=== PATIENT | female | born 1950 | race Caucasian/White ===

== ENCOUNTER → 2016-08-31 | Emergency (ER) | payer MEDICARE, MEDICAID ==
[~2016-08-31] VITALS: Ht 157.5 cm; Wt 88.5 kg
[~2016-08-31] MED LIST: ASPI-892 PO; ASPI81TA19 PO; ATOR20TA66 PO; ATOR80TA2 PO; CELE200C PO; CETI10TA17 PO; CETI10TA57 PO; CLCX100C PO; DESV50TA PO; DNPZ5T PO; DONE10TA5 PO; DONE5TAB30 PO; EZET10TA23 PO; FENO160T PO; FLECTOR PATCH; FLT05NA16 NSEACH; FLUT16SP13 NS; Flexeril; HYDR25TA4 PO; LEVO75TA6 PO; LINA5TAB PO; LISI1TAB10 PO; LISI1TAB78 PO; MEMA10TA PO; MEMA28CA PO; METF500T4 PO; MNTL10T PO; MONT10TA24 PO; MTF500T PO; MULT-1009 PO; MULT-974 PO; MV-M1TAB2 PO; NF-ESOM40C PO; NIAC-4 PO; NIAC400C2 PO; NIAC750T15 PO; OMEG1CAP51 PO; OMEG1CAP74 PO; PIOG15TA2 PO; PIOG15TA22 PO; SERT50TA9 PO; SIMV40TA4 PO; SMV20T PO; TRAM50TA2 PO; TRZ100T PO; VITA-37 PO
[2016-08-31 14:06] VITALS: BP 160/79
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
== END | disposition home or self-care (01) ==
LOC: EDUNIT# 13:50 → ER 13:53
DX: S19.9XXA Unspecified injury of neck, initial encounter (principal); S29.9XXA Unspecified injury of thorax, initial encounter; M47.812 Spondylosis without myelopathy or radiculopathy, cervical region; M48.02 Spinal stenosis, cervical region; E11.9 Type 2 diabetes mellitus without complications; Z79.84 Long term (current) use of oral hypoglycemic drugs; Z79.899 Other long term (current) drug therapy; V44.6XXA Car passenger injured in collision with heavy transport vehicle or bus in traffic accident, initial encounter; Y92.014 Private driveway to single-family (private) house as the place of occurrence of the external cause; Y99.8 Other external cause status
CPT/HCPCS: 72125; 72128; 99283

== ENCOUNTER 2017-09-13 15:23 | Emergency (ER) | payer MEDICAID, MEDICARE, OTHER ==
[~2017-09-13] VITALS: Ht 157.5 cm; Wt 74.4 kg
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
[2017-09-13 16:06] LABS: BILIRUBIN,URINE NEGATIVE (NEGATIVE); COLOR,URINE YELLOW; GLUCOSE, URINE (UA) NEGATIVE (NEGATIVE); KETONES,URINE 1+ (NEGATIVE); LEUKOCYTE ESTERASE ,URINE 2+ (NEGATIVE); NITRITE,URINE NEGATIVE (NEGATIVE); PH,URINE 6 (5-9); PROTEIN,URINE 1+ (NEGATIVE); UROBILINOGEN,URINE NORMAL (NORMAL)
[2017-09-13 16:07] LABS: CLARITY,URINE CLEAR
[2017-09-13 16:31] LABS: BACTERIA,URINE TRACE /HPF
[2017-09-13 16:45] LABS: BASOPHILS % (AUTO) 0 % (0-10); EOSINOPHILS # (AUTO) 0.2 10^3/uL (0.0-0.3); EOSINOPHILS % (AUTO) 2 % (0-10); HEMATOCRIT 45 % (35-52); HEMOGLOBIN 15.2 G/DL (11.5-16.0); LYMPHOCYTES % (AUTO) 26 % (12-44); MEAN CORPUSCULAR HEMOGLOBIN 29 PG (25-34); MEAN CORPUSCULAR HGB CONC 34 G/DL (32-36); MEAN CORPUSCULAR VOLUME 86 FL (80-99); MEAN PLATELET VOLUME 9.7 FL (7.4-10.4); MONOCYTES # (AUTO) 0.5 X 10^3 (0.0-1.0); MONOCYTES % (AUTO) 7 % (0-12); NEUTROPHILS # (AUTO) 4.9 X 10^3 (1.8-7.8); NEUTROPHILS % (AUTO) 65 % (42-75); PLATELET COUNT 271 10^3/uL (130-400); RED CELL DISTRIBUTION WIDTH 14.6 % (10.0-14.5); WHITE BLOOD COUNT 7.6 10^3/uL (4.3-11.0)
[2017-09-13 17:04] LABS: ALANINE AMINOTRANSFERASE 20 U/L (0-55); ALBUMIN 4.3 GM/DL (3.2-4.5); ALKALINE PHOSPHATASE 45 U/L (40-136); AMYLASE 31 U/L (25-125); BILIRUBIN,TOTAL 0.8 MG/DL (0.1-1.0); BUN/CREATININE RATIO 12; CALCIUM 9.8 MG/DL (8.5-10.1); CARBON DIOXIDE 26 MMOL/L (21-32); CHLORIDE 107 MMOL/L (98-107); CREATININE SERUM 0.84 MG/DL (0.60-1.30); GFR ESTIMATED > 60; GLUCOSE 89 MG/DL (70-105); LIPASE 9 U/L (8-78); SODIUM 141 MMOL/L (135-145); TOTAL PROTEIN 6.9 GM/DL (6.4-8.2)
[2017-09-13] MEDS: NS 250 ML (IVPB) BAG IV ONE (17:26)
[2017-09-13] MEDS: IOHEXOL 350 MG/ML 100 ML (OMNIPAQUE 350) VIAL IV ONE (17:26)
[2017-09-13] MEDS: CATHETER FLUSH 10 ML SYR IV PRN (17:26)
[2017-09-13] MEDS: NS IV 1000 ML 1,000 ML IV SCH (17:41)
--- NOTE | 2017-09-13 17:53 | Diagnostic Imaging Report ---
PROCEDURE: CT abdomen and pelvis with contrast. TECHNIQUE: Multiple contiguous axial images were obtained through the abdomen and pelvis after administration of intravenous contrast. DATE: September 03, 2017. COMPARISON: None. INDICATION: 67-year-old female, epigastric pain for one month, diarrhea. FINDINGS: The visualized portions of the lung bases are clear. The heart is not enlarged. There is no identified pericardial effusion. There are atherosclerotic calcifications. There is mild ectasia of the infrarenal abdominal aorta. The liver is diffusely low in attenuation compatible with diffuse fatty infiltration of the liver. The outer liver contours are not grossly nodular. There is no identified liver lesion. The main, right, and left portal veins are patent. The patient is status post cholecystectomy. There is no identified intrahepatic or extrahepatic bile duct dilation. The main pancreatic duct is not abnormally dilated. The pancreatic parenchyma is unremarkable. The spleen is normal in size. The adrenal glands are unremarkable. Unremarkable appearance of the renal parenchyma. The urinary collecting systems are not distended. There is no identified renal or ureteral stone. The urinary bladder is unremarkable in appearance. The intestinal tract is not distended. The appendix is best seen on axial image 62 and adjacent sequential images. There does appear to be mucosal enhancement and mild wall thickening at the level of the distal sigmoid colon. The lumen of the distal sigmoid colon appears somewhat narrow at this location although this potentially could relate to underdistention. There is no free intraperitoneal air. There is no drainable fluid collection. There is a fat-containing umbilical hernia. There is no free pelvic fluid. There is no identified abnormally enlarged lymph node within the abdomen or pelvis which meets CT size criteria for adenopathy. There is mild grade 1 retrolisthesis of L3 on L4. There are multilevel degenerative changes of the spine. There is no identified acute bony abnormality. IMPRESSION: CT ABDOMEN AND PELVIS. 1. Differential diagnostic considerations would include infectious and inflammatory colitis. Ischemic colitis would be considered in the differential diagnosis. Malignancy is also considered. Recommend correlation clinically. Colonoscopy may be helpful for further evaluation as needed. 2. Diffuse fatty infiltration of the liver. Dictated by: Dictated on workstation # [id number]
--- NOTE | 2017-09-13 18:03 | ED Abdominal Pain ---
General Chief Complaint: Abdominal/GI Problems Stated Complaint: ABD PAIN Nursing Triage Note: PT AMBULATED TO RM 5 W/O DIFFICULTIES. PT STATES SHE STARTED HAVING STOMACH PAIN APPROXIMATELY 1 MONTH AGO. PAIN IS NOW RADIATING INTO THE BACK. PT C/O N/V/D. PT STATES SHE IS TAKING PHENERGAN 8 MG AND IT IS NOT HELPING. PT IS ALSO CONCERNED SHE HAS HAD A LARGE WEIGHT LOSS, BUT UNSURE OF AMT. Sepsis Screen: Possible Sepsis Risk History of Present Illness Date Seen by Provider: Sep 13, 2017 Time Seen by Provider: 15:30 Initial Comments 67-year-old female presents for diarrhea, generalized abdominal pain, 20-30 pound weight loss over the last 3 months, alopecia and nausea. She reports seeing Dr. Kang approximately 2 months ago and having labs done, she is on levothyroxine. She reports the diarrhea has only been present for the last 2-3 days. She had a colonoscopy done 2-1/[address] German, polyps were found but no other abnormalities, and was told to have a repeat one in May of this year. She has not had this done yet. She denies any dietary changes. Previous cholecystectomy. Timing/Duration: 2-3 Days Severity/Quality: Mild, Cramping Location: Generalized Abdomen Radiation: No Radiation Associated Symptoms: Denies Symptoms Allergies and Home Medications Allergies Coded Allergies: NKANo Known Allergies (Verified Allergy, Unknown, 07/07/05) Home Medications Atorvastatin Calcium 80 Mg Tablet, 80 MG PO DAILY, (Reported) Celecoxib 200 Mg Capsule, 200 MG PO DAILY, (Reported) Cetirizine Hcl 10 Mg Tablet, 10 MG PO DAILY, (Reported) Ciprofloxacin HCl 500 Mg Tablet, 500 MG PO BID Prescribed by: GREGORIO CHESTER on 09/13/17 1820 Desvenlafaxine Succinate 50 Mg Tab.sr.24h, 50 MG PO DAILY, (Reported) Donepezil Hcl 5 Mg Tablet, 5 MG PO BID, (Reported) Donepezil Hcl Unknown Strength Tablet, Unknown Dose PO HS, (Reported) Ezetimibe 10 Mg Tablet, 10 MG PO HS, (Reported) Fluticasone Propionate 16 Gm Purmela, 16 GM NS PRN, (Reported) Levothyroxine Sodium 75 Mcg Tablet, 75 MCG PO DAILY, (Reported) Linagliptin 5 Mg Tablet, 5 MG PO DAILY, (Reported) Lisinopril/Hydrochlorothiazide 1 Tab Tablet, 1 TAB PO DAILY, (Reported) Memantine Hcl 10 Mg Tablet, 10 MG PO BID, (Reported) Metformin Hcl 500 Mg Tablet, 1 EACH PO BID WITH MEALS, (Reported) Metronidazole 500 Mg Tablet, 500 MG PO BID Prescribed by: GREGORIO CHESTER on 09/13/17 1820 Montelukast Sodium 10 Mg Tablet, 10 MG PO HS, (Reported) Multivitamin 1 Each Tablet, 1 TAB PO DAILY, (Reported) Mv-Mn/Fa/Coq10/Lycopene/Lutein 1 Each Tablet, 1 EACH PO DAILY, (Reported) [place]-3/Dha/Epa/Fish Oil 1,000 Mg Capsule, 2,000 MG PO DAILY, (Reported) Pioglitazone HCl 15 Mg Tablet, 15 MG PO DAILY, (Reported) Sertraline Hcl 50 Mg Tablet, 50 MG PO DAILY, (Reported) Simvastatin 40 Mg Tablet, 40 MG PO HS, (Reported) Tramadol HCl 50 Mg Tablet, 50 MG PO Q ID Prescribed by: ANEL COLE on 08/31/16 1632 Trazodone Hcl 100 Mg Tablet, 100 MG PO HS, (Reported) Vitamin B Complex Unknown Strength Tablet, Unknown Dose PO DAILY, (Reported) [Flexeril] , 10 MG twice a day Prescribed by: ANEL COLE on 08/31/16 1632 Patient Home Medication List Home Medication List Reviewed: Yes Review of Systems Constitutional: no symptoms reported Gastrointestinal: See HPI, Abdominal Pain, Diarrhea, Poor Appetite; Denies Poor Fluid Intake, Denies Vomiting All Other Systems Reviewed Negative Unless Noted: Yes Past Tyiekcc-Hrhoqm-Bydzfz Hx Past Med/Social Hx: Reviewed Nursing Past Med/Soc Hx Patient Social History Recent Foreign Travel: No Contact w/Someone Who Travel: No Recent Infectious Disease Expo: No Recent Hopitalizations: No Immunizations Up To Date Tetanus Booster (TDap): Unknown Date of Pneumonia Vaccine: May 21, 2011 Date of Influenza Vaccine: Mar 23, 2014 Past Medical History Gallbladder, Tonsillectomy High Cholesterol, Hypertension Reproductive Disorders: No Arthritis Hypothyroidsim, Diabetes, Non-Insulin dep Depression Family Medical History Prostate cancer 19 FATHER Respiratory disorder 19 MOTHER ( pnuemonia at age 85) CAD Over 55 Years Old, Hypertension Physical Exam Vital Signs Vital Signs - First Documented 09/13/17 09/13/17 15:26 18:33 Temp 100.7 Pulse 94 Resp 16 B/P (MAP) 144/89 (107) Pulse Ox 97 O2 Delivery Room Air Capillary Refill : Less Than 3 Seconds General Appearance: WD/WN, no apparent distress HEENT: PERRL/EOMI, normal ENT inspection, TMs normal, pharynx normal Neck: non-tender, full range of motion, supple, normal inspection Respiratory: chest non-tender, lungs clear, normal breath sounds Cardiovascular: normal peripheral pulses, regular rate, rhythm Gastrointestinal: normal bowel sounds, soft; No distended, No guarding, No rebound; tenderness (generalized); No mass Extremities: normal range of motion, non-tender, normal inspection Neurologic/Psychiatric: no motor/sensory deficits, alert, normal mood/affect, oriented x 3 Progress/Results/Core Measures Lab Results Laboratory Tests Test 09/13/17 15:36 09/13/17 16:34 Range/Units Urine Color YELLOW Urine Clarity CLEAR Urine pH 6 5-9 Urine Specific [place] 1.015 L 1.016-1.022 Urine Protein 1+ H NEGATIVE Urine Glucose (UA) NEGATIVE NEGATIVE Urine Ketones 1+ H NEGATIVE Urine Nitrite NEGATIVE NEGATIVE Urine Bilirubin NEGATIVE NEGATIVE Urine Urobilinogen NORMAL NORMAL MG/DL Urine Leukocyte Esterase 2+ H NEGATIVE Urine RBC (Auto) NEGATIVE NEGATIVE Urine RBC NONE /HPF Urine WBC 2-5 /HPF Urine Squamous Epithelial Cells 2-5 /HPF Urine Crystals NONE /LPF Urine Bacteria TRACE /HPF Urine Casts NONE /LPF Urine Mucus SMALL H /LPF Urine Culture Indicated NO White Blood Count 7.6 4.3-11.0 10^3/uL Red Blood Count 5.30 4.35-5.85 10^6/uL Hemoglobin 15.2 11.5-16.0 G/DL Hematocrit 45 35-52 % Mean Corpuscular Volume 86 80-99 FL Mean Corpuscular Hemoglobin 29 25-34 PG Mean Corpuscular Hemoglobin Concent 34 32-36 G/DL Red Cell Distribution Width 14.6 H 10.0-14.5 % Platelet Count 271 130-400 10^3/uL Mean Platelet Volume 9.7 7.4-10.4 FL Neutrophils (%) (Auto) 65 42-75 % Lymphocytes (%) (Auto) 26 12-44 % Monocytes (%) (Auto) 7 0-12 % Eosinophils (%) (Auto) 2 0-10 % Basophils (%) (Auto) 0 0-10 % Neutrophils # (Auto) 4.9 1.8-7.8 X 10^3 Lymphocytes # (Auto) 2.0 1.0-4.0 X 10^3 Monocytes # (Auto) 0.5 0.0-1.0 X 10^3 Eosinophils # (Auto) 0.2 0.0-0.3 10^3/uL Basophils # (Auto) 0.0 0.0-0.1 10^3/uL Sodium Level 141 135-145 MMOL/L Potassium Level 4.0 3.6-5.0 MMOL/L Chloride Level 107 98-107 MMOL/L Carbon Dioxide Level 26 21-32 MMOL/L Anion Gap 8 5-14 MMOL/L Blood Urea Nitrogen 10 7-18 MG/DL Creatinine 0.84 0.60-1.30 MG/DL Estimat Glomerular Filtration Rate > 60 BUN/Creatinine Ratio 12 Glucose Level 89 70-105 MG/DL Calcium Level 9.8 8.5-10.1 MG/DL Total Bilirubin 0.8 0.1-1.0 MG/DL Aspartate Amino Transf (AST/SGOT) 18 5-34 U/L Alanine Aminotransferase (ALT/SGPT) 20 0-55 U/L Alkaline Phosphatase 45 40-136 U/L C-Reactive Protein High Sensitivity 0.03 0.00-0.50 MG/DL Total Protein 6.9 6.4-8.2 GM/DL Albumin 4.3 3.2-4.5 GM/DL Amylase Level 31 25-125 U/L Lipase 9 8-78 U/L My Orders Orders - HENRIK,GREGORIO LYFT DRIVER Amylase (09/13/17 16:00) Cbc With Automated Diff (09/13/17 16:00) Comprehensive Metabolic Panel (09/13/17 16:00) Hs C Reactive Protein (09/13/17 16:00) Lipase (09/13/17 16:00) Ua Culture If Indicated (09/13/17 16:00) Ct Abdomen/Pelvis W (09/13/17 17:09) Saline Lock/Iv-Start (09/13/17 17:09) Ns Iv 1000 Ml (Sodium Chloride 0.9%) (09/13/17 17:09) Iohexol Injection (Omnipaque 350 Mg/Ml 1 (09/13/17 17:15) Sodium Chloride Flush (Catheter Flush Sy (09/13/17 17:15) Ns (Ivpb) (Sodium Chloride 0.9%) (09/13/17 17:15) Pharmacy Communication (Pharmacy Communi (09/13/17 17:12) Sucralfate Tablet (Carafate Tablet) (09/13/17 18:15) Medications Given in ED Current Medications Medications Dose Ordered Sig/Amy Route Start Time Stop Time Status Last Admin Dose Admin Iohexol 100 ml ONCE ONCE IV 09/13/17 17:15 09/13/17 17:16 DC 09/13/17 17:26 100 ML Sodium Chloride 10 ml NEEDED PRN IV 09/13/17 17:15 09/13/17 18:47 DC 09/13/17 17:26 10 ML Sodium Chloride 250 ml ONCE ONCE IV 09/13/17 17:15 09/13/17 17:16 DC 09/13/17 17:26 80 ML Sucralfate 1 gm ONCE ONCE PO 09/13/17 18:15 09/13/17 18:16 DC 09/13/17 18:14 1 GM Vital Signs/I&O 09/13/17 09/13/17 15:26 18:33 Temp 100.7 97.3 Pulse 94 88 Resp 16 16 B/P (MAP) 144/89 (107) 155/85 Pulse Ox 97 O2 Delivery Room Air Room Air Blood Pressure Mean: 107 Progress Note : Time: 15:30 Progress Note Initial evaluation completed, recommended labs and reevaluation. [address] normal recommended [address] abdomen with contrast. 1 L normal saline IV 1735 CT results reviewed with the patient and her son, discussed at length that it appears to be more inflammatory in nature or infectious however I would stress for them to get in with Dr. German for follow-up colonoscopy. They agreed with this plan of care. We'll give Carafate 1 g by mouth. Discussed patient's assessment, reviewed CT study and labs with Dr. Whatley. Agreed with treatment plan. Discharge instructions and return precautions reviewed with the patient and her son, all questions answered. Diagonstic Imaging: CT Plain Films/CT/US/NM/MRI: abdomen, pelvis Comments NAME: RUSSELL SAMAYOA Omid MED REC#: [id number] PT STATUS: REG ER : 1950 PHYSICIAN: GREGORIO CHESTERP ADMIT DATE: 09/13/17/ER Draft Date of Exam:09/13/17 CT ABDOMEN/PELVIS W PROCEDURE: CT abdomen and pelvis with contrast. TECHNIQUE: Multiple contiguous axial images were obtained through the abdomen and pelvis after administration of intravenous contrast. DATE: September 03, 2017. COMPARISON: None. INDICATION: 67-year-old female, epigastric pain for one month, diarrhea. FINDINGS: The visualized portions of the lung bases are clear. The heart is not enlarged. There is no identified pericardial effusion. There are atherosclerotic calcifications. There is mild ectasia of the infrarenal abdominal aorta. The liver is diffusely low in attenuation compatible with diffuse fatty infiltration of the liver. The outer liver contours are not grossly nodular. There is no identified liver lesion. The main, right, and left portal veins are patent. The patient is status post cholecystectomy. There is no identified intrahepatic or extrahepatic bile duct dilation. The main pancreatic duct is not abnormally dilated. The pancreatic parenchyma is unremarkable. The spleen is normal in size. The adrenal glands are unremarkable. Unremarkable appearance of the renal parenchyma. The urinary collecting systems are not distended. There is no identified renal or ureteral stone. The urinary bladder is unremarkable in appearance. The intestinal tract is not distended. The appendix is best seen on axial image 62 and adjacent sequential images. There does appear to be mucosal enhancement and mild wall thickening at the level of the distal sigmoid colon. The lumen of the distal sigmoid colon appears somewhat narrow at this location although this potentially could relate to underdistention. There is no free intraperitoneal air. There is no drainable fluid collection. There is a fat-containing umbilical hernia. There is no free pelvic fluid. There is no identified abnormally enlarged lymph node within the abdomen or pelvis which meets CT size criteria for adenopathy. There is mild grade 1 retrolisthesis of L3 on L4. There are multilevel degenerative changes of the spine. There is no identified acute bony abnormality. IMPRESSION: CT ABDOMEN AND PELVIS. 1. Differential diagnostic considerations would include infectious and inflammatory colitis. Ischemic colitis would be considered in the differential diagnosis. Malignancy is also considered. Recommend correlation clinically. Colonoscopy may be helpful for further evaluation as needed. 2. Diffuse fatty infiltration of the liver. Dictated on workstation # [id number] Dict: 09/13/17 1742 Trans: 09/13/17 1753 [facility] [id number] Interpreted by: TAMEKA BARAHONA MD Electronically signed by: Reviewed: Reviewed by Me (with Dr. Whatley) Departure Impression Primary Impression: Gastroenteritis Additional Impressions: Diarrhea Qualified Codes: R19.7 - Diarrhea, unspecified Weight loss Disposition: 01 HOME, SELF-CARE Condition: Improved Departure-Patient Inst. Decision time for Depature: 18:00 Referrals: [facility] [place]) Primary Care Physician Patient Instructions: Acute Abdomen (Belly Pain), Adult (DC), CONTRAST ANTIDIABETIC MEDS, Diarrhea in Adolescents and Adults Add. Discharge Instructions: Clear liquid diet for the next 6 hours then a bland diet as tolerated. Take antibiotics as prescribed. While your Exam and CT Study lean towards inflammatory changes in your colon, it is important that you follow up with Dr. German to consider colonoscopy study. Call Dr. German office tomorrow for follow up in the next 2 weeks. Follow-up with your primary care provider if symptoms are not improving. You may use [id number] antidiarrheal medication as needed. Return to the emergency department for increased abdominal pain, fever greater than 101, new problems or concerns. All discharge instructions reviewed with patient and/or family. Voiced understanding. Scripts Metronidazole (Flagyl) 500 Mg Tablet 500 MG PO BID, #20 TAB 0 Refills Prov: GREGORIO CHESTER 09/13/17 Ciprofloxacin HCl (Cipro) 500 Mg Tablet 500 MG PO BID, #20 TAB 0 Refills Prov: GREGORIO CHESTER 09/13/17 Copy Copies To 1: CARINE KANG MD Copies To 2: UZAIR GERMAN MD, AMY ARNP Sep 13, 2017 18:03
[2017-09-13] MEDS: SUCRALFATE 1 GM (CARAFATE) TAB PO ONE (18:14)
[2017-09-13] MEDS ORDERED: CIPR-225 PO (18:20)
[2017-09-13] MEDS ORDERED: METR500T PO (18:20)
[2017-09-13 18:33] VITALS: BP 155/85
== END 2017-09-13 18:33 | disposition home or self-care (01) ==
LOC: EDUNIT# 15:23 → ER 15:24
DX: K52.9 Noninfective gastroenteritis and colitis, unspecified (principal); R63.4 Abnormal weight loss; E78.00 Pure hypercholesterolemia, unspecified; I10 Essential (primary) hypertension; E03.9 Hypothyroidism, unspecified; E11.9 Type 2 diabetes mellitus without complications; F32.9 Major depressive disorder, single episode, unspecified; Z82.49 Family history of ischemic heart disease and other diseases of the circulatory system; Z80.42 Family history of malignant neoplasm of prostate; Z90.49 Acquired absence of other specified parts of digestive tract; Z79.84 Long term (current) use of oral hypoglycemic drugs; Z79.51 Long term (current) use of inhaled steroids; Z90.89 Acquired absence of other organs
CPT/HCPCS: 36415; 74177; 80053; 81000; 82150; 83690; 85025; 86141; 96360

== ENCOUNTER 2017-09-17 05:40 | Outpatient (CLI) | payer MEDICARE ==
[~2017-09-17] VITALS: Ht 157.5 cm; Wt 74.6 kg
[~2017-09-17 05:40] MED LIST changes: +CIPR-225 PO; +METR500T PO
[2017-09-17] MEDS ORDERED: RANI150T90 PO (13:55)
[2017-09-17] MEDS ORDERED: CHOL2000 PO (13:55)
[2017-09-17] MEDS ORDERED: FLUT9.9S NS (13:55)
[2017-09-17] MEDS ORDERED: ATOR20TA49 PO (13:55)
[2017-09-17] MEDS ORDERED: METF500T5 PO (13:55)
[2017-09-17] MEDS ORDERED: ASCO500C17 PO (13:55)
[2017-09-17] MEDS ORDERED: LEVO75TA6 PO (13:55)
[2017-09-17] MEDS ORDERED: CALC-823 PO (13:55)
[2017-09-17] MEDS ORDERED: MULT-35 PO (13:55)
[2017-09-17] MEDS ORDERED: OMG1KC PO (13:55)
[2017-09-17] MEDS ORDERED: ASPI-999 PO (13:55)
== END 2017-09-17 14:06 ==
LOC: PREOP 05:40
PROVIDERS: ATTEND Surgery
DX: Z01.818 Encounter for other preprocedural examination (principal); R63.4 Abnormal weight loss; Z86.010 Personal history of colon polyps

== ENCOUNTER 2017-09-20 17:00 | Emergency (ER) | payer MEDICARE ==
[~2017-09-20] VITALS: Ht 157.5 cm; Wt 72.6 kg
[~2017-09-20 17:00] MED LIST changes: +ASCO500C17 PO; +ASPI-999 PO; +ATOR20TA49 PO; +CALC-823 PO; +CHOL2000 PO; +FLUT9.9S NS; +METF500T5 PO; +MULT-35 PO; +OMG1KC PO; +RANI150T90 PO
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
[2017-09-20 17:52] LABS: BILIRUBIN,URINE NEGATIVE (NEGATIVE); CLARITY,URINE CLEAR; COLOR,URINE YELLOW; GLUCOSE, URINE (UA) NEGATIVE (NEGATIVE); KETONES,URINE 1+ (NEGATIVE); LEUKOCYTE ESTERASE ,URINE 3+ (NEGATIVE); NITRITE,URINE POSITIVE (NEGATIVE); PH,URINE 6 (5-9); PROTEIN,URINE 2+ (NEGATIVE); UROBILINOGEN,URINE 1 MG/DL (NORMAL)
[2017-09-20] MEDS ORDERED: FAMOTIDINE 20 MG (PEPCID) TABLET PO STA (17:58)
[2017-09-20 18:00] LABS: BACTERIA,URINE FEW /HPF; WBC,URINE 25-50 /HPF
[2017-09-20] MEDS ORDERED: ANTACID SUSP 30 ML UDC (MYLANTA) PO ONE (18:00)
[2017-09-20] MEDS ORDERED: LIDOCAINE 2% VISCOUS 15 ML UDC PO ONE (18:00)
[2017-09-20] MEDS ORDERED: ONDANSETRON 4 MG (ZOFRAN) ORAL DISSOLVE TAB PO ONE (18:00)
[2017-09-20] MEDS ORDERED: KETOROLAC 30 MG/ML VIAL IM ONE (18:00)
--- NOTE | 2017-09-20 18:00 | ED Abdominal Pain ---
General Chief Complaint: Abdominal/GI Problems Stated Complaint: ABD PAIN Nursing Triage Note: TO ROOM C/O EPIGASTRIC PAIN FOR 1 MONTH HAS BEEN SEEN IN ED FOR HAS APPOINTMENT WITH DR GERMAN ON SUNDAY TO DO A SCOPE. Sepsis Screen: No Definite Risk Source of Information: Patient, Other Exam Limitations: No Limitations History of Present Illness Date Seen by Provider: September 20, 2017 Time Seen by Provider: 17:45 Initial Comments The patient presents to the ER by private conveyance with a chief complaint she is having midepigastric abdominal pain for the last month off and on. It has gotten worse over the last 2 weeks. Week ago she went to her doctor and then a couple days later came to the ER because the pain was getting more persistent. She's had a couple of loose stools but for the most part been solid formed stools. She's not having any fevers or chills. She has CT of the abdomen a week ago that demonstrated thickening of her colon jeff consistent with colitis and she was put on Cipro and Flagyl. She says she's been taking the antibiotics but has not felt any better and she still having some nausea with occasional vomiting. She says she is keeping up with her fluid intake but just does not feel well. She thinks she's lost about 10 pounds in the last month or so. She has a planned colonoscopy with Dr. German next week, Sunday about 4 days. She's had polyps found on her colonoscopy before. She does not have anything for nausea. She is not taking anything for the pain such as Tylenol Motrin or heating pads. Allergies and Home Medications Allergies Coded Allergies: No Known Drug Allergies (Unverified , 09/17/17) Home Medications Ascorbic Acid 500 Mg Capsule, 500 MG PO DAILY, (Reported) Aspirin 81 Mg Tab.chew, 81 MG PO DAILY, (Reported) Atorvastatin Calcium 20 Mg Tablet, 20 MG PO DAILY, (Reported) Calcium Carbonate 500 Mg Tablet, 500 MG PO DAILY, (Reported) Cholecalciferol (Vitamin D3) 2,000 Unit Capsule, 2,000 UNIT PO DAILY, (Reported) Fluticasone Propionate 9.9 Ml [place].susp, 1 SPRAY NS BID, (Reported) 1 SPRAY EACH NARE DAILY Levothyroxine Sodium 75 Mcg Tablet, 75 MCG PO DAILY, (Reported) Metformin HCl 500 Mg Tablet, 500 MG PO BID, (Reported) Multivitamin 1 Each Tablet, 1 EACH PO DAILY, (Reported) [place] 3 Polyunsat Fatty Acids 1,000 Mg Cap, 1,000 MG PO DAILY, (Reported) Ranitidine HCl 150 Mg Tablet, 150 MG PO BID, (Reported) Patient Home Medication List Home Medication List Reviewed: Yes Review of Systems Constitutional: No chills, No diaphoresis, No fever; malaise EENTM: No Blurred Vision, No Eye Pain Respiratory: Denies Cough, Denies Shortness of Air Cardiovascular: Denies Chest Pain, Denies Edema, Denies Lightheadedness Gastrointestinal: Denies Constipated; Diarrhea (occ), Nausea, Poor Fluid Intake , Vomiting (occ) Genitourinary: Denies Burning, Denies Discharge, Denies Drainage Musculoskeletal: No back pain, No joint pain Skin: No pruritus, No rash Past [id number]-[id number] Hx Patient Social History Alcohol Use: Denies Use Recreational Drug Use: No Recent Foreign Travel: No Contact w/Someone Who Travel: No Recent Infectious Disease Expo: No Recent Hopitalizations: No Immunizations Up To Date Tetanus Booster (TDap): Unknown Date of Pneumonia Vaccine: Mar 05, 2015 Date of Influenza Vaccine: Mar 05, 2017 Seasonal Allergies Seasonal Allergies: Yes (MILD) Past Medical History Surgeries: Yes Gallbladder, Tonsillectomy Respiratory: No Cardiac: Yes High Cholesterol, Hypertension Neurological: No Reproductive Disorders: No Sexually Transmitted Disease: No HIV/AIDS: No Gastrointestinal: Yes (WT LOSS) Gastroesophageal Reflux, Polyps Musculoskeletal: No Arthritis Endocrine: Yes (DM, THYROID DZ- TAKES METFORMIN AND LEVOTHYROXINE) Hypothyroidsim, Diabetes, Non-Insulin dep Loss of Vision: Bilateral Hearing Impairment: Denies Cancer: No Psychosocial: Yes Anxiety, Depression Integumentary: No Blood Disorders: No Adverse Reaction/Blood Tranf: No (N/A) Family Medical History Prostate cancer 19 FATHER Respiratory disorder 19 MOTHER ( pnuemonia at age 85) CAD Over 55 Years Old, Hypertension Physical Exam Vital Signs Vital Signs - First Documented 09/20/17 17:38 Temp 98.1 Pulse 86 Resp 18 B/P (MAP) 138/84 (102) Pulse Ox 95 O2 Delivery Room Air Capillary Refill : Less Than 3 Seconds General Appearance: WD/WN, no apparent distress HEENT: PERRL/EOMI, TMs normal, pharynx normal (oral mucosa is moist) Neck: non-tender, full range of motion, supple, normal inspection Respiratory: chest non-tender, lungs clear, normal breath sounds, no respiratory distress, no accessory muscle use Cardiovascular: normal peripheral pulses, regular rate, rhythm, no edema Gastrointestinal: normal bowel sounds, non tender, soft Extremities: normal range of motion, non-tender, normal inspection Neurologic/Psychiatric: alert, normal mood/affect, oriented x 3 Skin: normal color, warm/dry Progress/Results/Core Measures Results/Orders Lab Results Laboratory Tests Test 09/20/17 17:45 09/20/17 18:05 Range/Units Urine Color YELLOW Urine Clarity CLEAR Urine pH 6 5-9 Urine Specific [place] 1.015 L 1.016-1.022 Urine Protein 2+ H NEGATIVE Urine Glucose (UA) NEGATIVE NEGATIVE Urine Ketones 1+ H NEGATIVE Urine Nitrite POSITIVE H NEGATIVE Urine Bilirubin NEGATIVE NEGATIVE Urine Urobilinogen 1 NORMAL MG/DL Urine Leukocyte Esterase 3+ H NEGATIVE Urine RBC (Auto) 1+ H NEGATIVE Urine RBC 2-5 H /HPF Urine WBC 25-50 H /HPF Urine Squamous Epithelial Cells 2-5 /HPF Urine Crystals NONE /LPF Urine Bacteria FEW H /HPF Urine Casts NONE /LPF Urine Mucus NEGATIVE /LPF Urine Culture Indicated YES White Blood Count 8.9 4.3-11.0 10^3/uL Red Blood Count 5.61 4.35-5.85 10^6/uL Hemoglobin 16.0 11.5-16.0 G/DL Hematocrit 48 35-52 % Mean Corpuscular Volume 85 80-99 FL Mean Corpuscular Hemoglobin 29 25-34 PG Mean Corpuscular Hemoglobin Concent 34 32-36 G/DL Red Cell Distribution Width 14.3 10.0-14.5 % Platelet Count 269 130-400 10^3/uL Mean Platelet Volume 10.2 7.4-10.4 FL Neutrophils (%) (Auto) 68 42-75 % Lymphocytes (%) (Auto) 23 12-44 % Monocytes (%) (Auto) 6 0-12 % Eosinophils (%) (Auto) 2 0-10 % Basophils (%) (Auto) 1 0-10 % Neutrophils # (Auto) 6.1 1.8-7.8 X 10^3 Lymphocytes # (Auto) 2.0 1.0-4.0 X 10^3 Monocytes # (Auto) 0.6 0.0-1.0 X 10^3 Eosinophils # (Auto) 0.2 0.0-0.3 10^3/uL Basophils # (Auto) 0.1 0.0-0.1 10^3/uL Sodium Level 141 135-145 MMOL/L Potassium Level 3.9 3.6-5.0 MMOL/L Chloride Level 105 98-107 MMOL/L Carbon Dioxide Level 25 21-32 MMOL/L Anion Gap 11 5-14 MMOL/L Blood Urea Nitrogen 11 7-18 MG/DL Creatinine 1.04 0.60-1.30 MG/DL Estimat Glomerular Filtration Rate 53 BUN/Creatinine Ratio 11 Glucose Level 112 H 70-105 MG/DL Calcium Level 10.1 8.5-10.1 MG/DL Magnesium Level 2.0 1.8-2.4 MG/DL Total Bilirubin 0.8 0.1-1.0 MG/DL Aspartate Amino Transf (AST/SGOT) 15 5-34 U/L Alanine Aminotransferase (ALT/SGPT) 17 0-55 U/L Alkaline Phosphatase 51 40-136 U/L C-Reactive Protein High Sensitivity 0.03 0.00-0.50 MG/DL Total Protein 7.4 6.4-8.2 GM/DL Albumin 4.7 H 3.2-4.5 GM/DL My Orders Orders - LYSSA DRUMMOND Cbc With Automated Diff (09/20/17 17:55) Comprehensive Metabolic Panel (09/20/17 17:55) Hs C Reactive Protein (09/20/17 17:55) Magnesium (09/20/17 17:55) Ondansetron Oral Dissolve Tab (Zofran (09/20/17 18:00) Ketorolac Injection (Toradol Injection) (09/20/17 18:00) Lidocaine 2% Viscous 15 Ml (Xylocaine Vi (09/20/17 18:00) Famotidine Tablet (Pepcid Tablet) (09/20/17 17:58) Antacid Suspension (Mylanta Suspension (09/20/17 18:00) Ceftriaxone Injection (Rocephin Injectio (09/20/17 18:15) Ceftriaxone Injection (Rocephin Injectio (09/20/17 18:30) Lidocaine 1% Inj 50 Ml (Xylocaine 1% Inj (09/20/17 18:30) Lidocaine Pf 1% 5 Ml Injection (Xylocain (09/20/17 18:27) Medications Given in ED Current Medications Medications Dose Ordered Sig/Amy Route Start Time Stop Time Status Last Admin Dose Admin Al Hydrox/Mg Hydrox/Simethicone 30 ml ONCE ONCE PO 09/20/17 18:00 09/20/17 18:01 DC 09/20/17 18:36 30 ML Ceftriaxone Sodium 1,000 mg ONCE ONCE IM 09/20/17 18:30 09/20/17 18:31 DC 09/20/17 18:38 1,000 MG Ketorolac Tromethamine 15 mg ONCE ONCE IM 09/20/17 18:00 09/20/17 18:01 DC 09/20/17 18:38 15 MG Lidocaine HCl 5 ml STK-MED ONCE .ROUTE 09/20/17 18:27 09/20/17 18:32 DC 09/20/17 18:39 5 ML Lidocaine HCl 15 ml ONCE ONCE PO 09/20/17 18:00 09/20/17 18:01 DC 09/20/17 18:36 15 ML Ondansetron HCl 4 mg ONCE ONCE PO 09/20/17 18:00 09/20/17 18:01 DC 09/20/17 18:37 4 MG Vital Signs/I&O 09/20/17 17:38 Temp 98.1 Pulse 86 Resp 18 B/P (MAP) 138/84 (102) Pulse Ox 95 O2 Delivery Room Air Blood Pressure Mean: 102 Progress Progress Note #1: Time: 18:03 Progress Note Patient was seen by another provider in this ER about a week ago and had CT findings thickening colon wall possible consistent with infectious versus inflammatory versus malignant. Sounds like her diarrhea was more recent finding. She is not with any definite increase in her CRP her white blood cell count 19 concerning for a malignant process. She was appropriately treated but does not feel that her symptoms or any better. Return if her a GI cocktail see if this doesn't alleviate some of her pain in her midepigastrium as well as some Zofran for her nausea. We'll give her some ketorolac also for her pain and if we can get her symptoms under control and find no further evidence of infectious or inflammatory runaway disease and we can get her to follow up outpatient with her scheduled appointment in 4 days. She appears to have a UTI with nitrite-positive urinalysis had despite the Cipro ofloxacin so we'll give her a gram or Rocephin today and probably had probiotics and Keflex. Progress Note #2: Time: 18:50 Progress Note The patient's midepigastric pain is improved after the GI cocktail. We've encouraged her to continue taking her ranitidine. We'll put her on probiotics 2 capsules twice a day for the next couple weeks. She has 2 more days worth of the Cipro and Flagyl. We'll go ahead and add Keflex tomorrow evening for 4 more days for a total of 5 days including the Rocephin she received today. We'll also give her some Zofran. We've given her strict return precautions. Departure Impression Primary Impression: Gastroenteritis/colitis, infectious Additional Impression: Urinary tract infection Qualified Codes: N30.01 - Acute cystitis with hematuria Disposition: HOME, SELF-CARE Condition: Improved Departure-Patient Inst. Decision time for Depature: 18:52 Referrals: [facility] [place] (PCP) Primary Care Physician CORINNE CORMIER MD (Family) Primary Care Physician Patient Instructions: Acute Cystitis (DC) Add. Discharge Instructions: Continue taking the antibiotics that you've been prescribed, ciprofloxacin and Flagyl to completion. Tonight go to the pharmacy and pickling tank operator the Zofran to be used one tablet on the tongue every 6 hours as needed for nausea or vomiting. You should also pickling tank operator a bottle of probiotics [id number] and take 2 capsules twice a day for the next 2 weeks. Finally you should pickling tank operator the prescription Keflex and start taking one capsule twice a day tomorrow for the next 4 days to cover your bladder infection. Drink lots and lots of fluids especially sports drinks or water. Keep your follow-up appointment with Dr. German. If you're nausea and vomiting is not controlled by the Zofran or you develop fevers or severe pain that is not controlled with Tylenol and/or Motrin or heating pads you should return to the ER for further evaluation. All discharge instructions reviewed with patient and/or family. Voiced understanding. Scripts Lactobacillus Combo No.11 (Probiotic) 1 Each Cap.sprink 2 EACH PO BID for 14 Days, #60 CAP 0 Refills Prov: LYSSA DRUMMOND 09/20/17 Cephalexin (Cephalexin) 500 Mg Tablet 500 MG PO BID for 4 Days, #8 TAB 0 Refills Prov: LYSSA DRUMMOND 09/20/17 Ondansetron (Ondansetron Odt) 4 Mg Tab.rapdis 4 MG PO Q6H PRN for NAUSEA/VOMITING, #8 TAB 0 Refills Prov: LYSSA DRUMMOND 09/20/17 Copy Copies To 1: BACILIO MCCOY DO; UZAIR GERMAN MD, TITUS J September 20, 2017 18:00
[2017-09-20] MEDS ORDERED: cefTRIAXone INJECTION 1,000 MG in NS (IVPB) 100 ML IV ONE (18:15)
[2017-09-20 18:18] LABS: BASOPHILS # (AUTO) 0.1 10^3/uL (0.0-0.1); BASOPHILS % (AUTO) 1 % (0-10); EOSINOPHILS # (AUTO) 0.2 10^3/uL (0.0-0.3); EOSINOPHILS % (AUTO) 2 % (0-10); HEMATOCRIT 48 % (35-52); LYMPHOCYTES % (AUTO) 23 % (12-44); MEAN CORPUSCULAR HEMOGLOBIN 29 PG (25-34); MEAN CORPUSCULAR HGB CONC 34 G/DL (32-36); MEAN CORPUSCULAR VOLUME 85 FL (80-99); MEAN PLATELET VOLUME 10.2 FL (7.4-10.4); MONOCYTES # (AUTO) 0.6 X 10^3 (0.0-1.0); MONOCYTES % (AUTO) 6 % (0-12); NEUTROPHILS # (AUTO) 6.1 X 10^3 (1.8-7.8); NEUTROPHILS % (AUTO) 68 % (42-75); PLATELET COUNT 269 10^3/uL (130-400); RED BLOOD COUNT 5.61 10^6/uL (4.35-5.85); RED CELL DISTRIBUTION WIDTH 14.3 % (10.0-14.5); WHITE BLOOD COUNT 8.9 10^3/uL (4.3-11.0)
[2017-09-20] MEDS ORDERED: LIDOCAINE PF 1% 5 ML (XYLOCAINE) AMP ONE (18:27)
[2017-09-20] MEDS ORDERED: LIDOCAINE 1% INJ 50 ML (XYLOCAINE) VIAL IJ ONE (18:30)
[2017-09-20] MEDS ORDERED: cefTRIAXone 1 GM (ROCEPHIN) VIAL IM ONE (18:30)
[2017-09-20 18:33] LABS: ALBUMIN 4.7 GM/DL (3.2-4.5); BILIRUBIN,TOTAL 0.8 MG/DL (0.1-1.0); CALCIUM 10.1 MG/DL (8.5-10.1); CREATININE SERUM 1.04 MG/DL (0.60-1.30); POTASSIUM 3.9 MMOL/L (3.6-5.0); TOTAL PROTEIN 7.4 GM/DL (6.4-8.2)
[2017-09-20] MEDS ORDERED: LACT1CAP64 PO (18:56)
[2017-09-20] MEDS ORDERED: ONDA4TAB11 PO (18:56)
[2017-09-20] MEDS ORDERED: CEPH500T PO (18:56)
[2017-09-20 19:02] VITALS: BP 137/95
== END 2017-09-20 19:02 | disposition home or self-care (01) ==
LOC: EDUNIT# 17:00 → ER 17:01
DX: A09 Infectious gastroenteritis and colitis, unspecified (principal); N39.0 Urinary tract infection, site not specified; E78.00 Pure hypercholesterolemia, unspecified; I10 Essential (primary) hypertension; K21.9 Gastro-esophageal reflux disease without esophagitis; E11.9 Type 2 diabetes mellitus without complications; E03.9 Hypothyroidism, unspecified; F41.9 Anxiety disorder, unspecified; F32.9 Major depressive disorder, single episode, unspecified; Z80.42 Family history of malignant neoplasm of prostate; Z79.52 Long term (current) use of systemic steroids; Z86.010 Personal history of colon polyps; Z79.84 Long term (current) use of oral hypoglycemic drugs; Z90.89 Acquired absence of other organs
CPT/HCPCS: 36415; 80053; 81000; 83735; 85025; 86141; 87088; 87186; 96372; 99284

== ENCOUNTER 2017-09-24 08:26 | Day surgery (SDC) | payer MEDICARE ==
[~2017-09-24] VITALS: Ht 157.5 cm; Wt 72.8 kg
[~2017-09-24 08:26] MED LIST changes: +CEPH500T PO; +LACT1CAP64 PO; +ONDA4TAB11 PO
[2017-09-24] MEDS ORDERED: NS IV 500 ML 500 ML ONE (08:30)
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
[2017-09-24] MEDS ORDERED: HURRICAINE EXT TUBE (BENZOCAINE) XX PRN ×2 (08:45→09:30)
[2017-09-24 08:50] VITALS: BP 130/79
--- NOTE | 2017-09-24 09:20 | History & Physicial ---
History of Present Illness History of Present Illness Reason for visit/HPI to undergo colonoscopy in view of abnormal diarrhea with weight loss and on the basis of thickening of the sigmoid colon seen on a CT scan Date of Admission 09/24/17 Date Seen by Provider: September 24, 2017 Time Seen by Provider: 09:15 I consulted on this patient on 09/24/17 09:15 Attending Physician Uzair German MD Admitting Physician [place] Consult Allergies and Home Medications Allergies Coded Allergies: No Known Drug Allergies (Unverified , 09/17/17) Home Medications Ascorbic Acid 500 Mg Capsule, 500 MG PO DAILY, (Reported) Aspirin 81 Mg Tab.chew, 81 MG PO DAILY, (Reported) Atorvastatin Calcium 20 Mg Tablet, 20 MG PO DAILY, (Reported) Calcium Carbonate 500 Mg Tablet, 500 MG PO DAILY, (Reported) Cholecalciferol (Vitamin D3) 2,000 Unit Capsule, 2,000 UNIT PO DAILY, (Reported) Fluticasone Propionate 9.9 Ml [place].susp, 1 SPRAY NS BID, (Reported) 1 SPRAY EACH NARE DAILY Lactobacillus Combo No.11 1 Each Cap.sprink, 2 EACH PO BID Prescribed by: LYSSA DRUMMOND on 09/20/171855 Levothyroxine Sodium 75 Mcg Tablet, 75 MCG PO DAILY, (Reported) Metformin HCl 500 Mg Tablet, 500 MG PO BID, (Reported) Multivitamin 1 Each Tablet, 1 EACH PO DAILY, (Reported) [place] 3 Polyunsat Fatty Acids 1,000 Mg Cap, 1,000 MG PO DAILY, (Reported) Ranitidine HCl 150 Mg Tablet, 150 MG PO BID, (Reported) Patient Home Medication List Home Medication List Reviewed: Yes Past Jzmlwgj-Trbivb-Ynwcbc Hx Patient Social History Employed/Student: unemployed Alcohol Use: Denies Use Recreational Drug Use: No Smoking Status: Never a Smoker Recent Foreign Travel: No Contact w/other who traveled: No Recent Hopitalizations: No Recent Infectious Disease Expo: No Immunizations Up To Date Tetanus Booster (TDap): Unknown Date of Pneumonia Vaccine: Mar 05, 2015 Date of Influenza Vaccine: Mar 05, 2017 Seasonal Allergies Seasonal Allergies: Yes (MILD) Surgeries Yes Gallbladder, Tonsillectomy Respiratory No Cardiovascular Yes High Cholesterol, Hypertension Neurological No Reproductive System Hx Reproductive Disorders: No Sexually Transmitted Disease: No HIV/AIDS: No Gastrointestinal Yes (WT LOSS) Gastroesophageal Reflux, Polyps Musculoskeletal No Arthritis Endocrine History of Endocrine Disorders: Yes (DM, THYROID DZ- TAKES METFORMIN AND LEVOTHYROXINE) Endocrine Disorders: Hypothyroidsim, Diabetes, Non-Insulin dep HEENT Loss of Vision: Bilateral Hearing Impairment: Denies Cancer No Psychosocial History of Psychiatric Problem: Yes Behavioral Health Disorders: Anxiety, Depression Integumentary History of Skin or Integumenta: No Blood Transfusions History of Blood Disorders: No Adverse Reaction to a Blood Tr: No (N/A) Family Medical History Significant Family History: CAD Over 55 Years Old, Hypertension Family Hx: Prostate cancer 19 FATHER Respiratory disorder 19 MOTHER ( pnuemonia at age 85) Constitutional: weight loss EENTM: no symptoms reported Respiratory: no symptoms reported Cardiovascular: no symptoms reported Gastrointestinal: diarrhea Genitourinary: no symptoms reported Musculoskeletal: no symptoms reported Skin: no symptoms reported Psychiatric/Neurological: No Symptoms Reported Physical Exam Vital Signs Vital Signs - First Documented 09/24/17 08:50 Temp 99.5 Pulse 69 Resp 16 B/P (MAP) 130/79 (96) Pulse Ox 93 O2 Delivery Room Air Capillary Refill : General Appearance: No Apparent Distress Neck: Normal Inspection Respiratory: Lungs Clear Cardiovascular: Regular Rate, Rhythm Gastrointestinal: Non Tender, Soft Rectal: Deferred Back: Normal Inspection Extremity: Normal Inspection Neurologic/Psychiatric: Alert, Oriented x3 Skin: Warm/Dry Assessment/Plan Assessment and Plan lady with unexplained weight loss and diarrhea. Abnormal CT scan showing thickening of the sigmoid colon, for colonoscopy. Admission Diagnosis Admission Status: Other (Outpt Proc) UZAIR GERMAN MD September 24, 2017 9:20 am
--- NOTE | 2017-09-24 09:21 | Conscious Sedation/ASA ---
Conscious Sedation Pre-Proced Time Reviewed: 09:21 ASA Class: 2 Airway Mallampati Classification: ([place] appropriate class) I. II. III, IV Lungs Heart ASA score ASA 1: a normal healthy patient ASA 2: a patient with a mild systemic disease (mid diabetes, controlled hypertension, obesity ASA 3: a patient with a severe systemic disease that limits activity (angina , COPD, prior Myocardial infarction) ASA 4: a patient with an incapacitating disease that is a constant threat to life (CHF, renal failure) ASA 5: a moribund patient not expected to survive 24 hrs. (ruptured aneurysm) ASA 6: a declared brain patient whose organs are being harvested. For emergent operations, add the letter E after the classification Grade 2 Sedation Plan: Discussed options with patient/fam Note The patient is an appropriate candidate to undergo the planned procedure, sedation, and anesthesia. The patient immediately re-assessed prior to indication. UZAIR GERMAN MD September 24, 2017 9:21 am
[2017-09-24] MEDS ORDERED: NS IV 500 ML 500 ML IV PRN (09:24)
[2017-09-24] MEDS ORDERED: MIDAZOLAM 2 MG/2 ML (VERSED) VIAL IVP PRN (09:30)
[2017-09-24] MEDS ORDERED: fentaNYL INJECTION 100 MCG/2 ML AMP IVP PRN (09:30)
[2017-09-24] MEDS ORDERED: MIDAZOLAM 2 MG/2 ML (VERSED) VIAL ONE ×4 (09:46→09:47)
[2017-09-24] MEDS ORDERED: fentaNYL INJECTION 100 MCG/2 ML AMP ONE ×2 (09:46)
[2017-09-24] MEDS ORDERED: HURRICAINE EXT TUBE (BENZOCAINE) ONE (09:47)
[2017-09-24] MEDS: fentaNYL INJECTION 100 MCG/2 ML AMP IVP PRN ×2 (09:50→09:56)
[2017-09-24] MEDS: MIDAZOLAM 2 MG/2 ML (VERSED) VIAL IVP PRN ×3 (09:54→10:07)
--- NOTE | 2017-09-24 10:26 | Endo Procedure Record ---
Endo Procedure Report Date of Procedure Last Colonoscopy: No (UNSURE) September 24, 2017 Surgeon (s) UZAIR GERMAN MD Post Procedure/Op Diagnosis EGD: Distal gastric erosions Colonoscopy: 1 mm distal rectal polyp. Sigmoid diverticulae Procedure Performed EGD with antral biopsy for H. pylori Colonoscopy to cecum Hot biopsy Polypectomy Description of Procedure Anesthesia Type: Conscious Sedation Specimen(s) collected/removed antral mucosa for H. pylori. Distal rectal polyp Description of the Procedure Indication for the procedures: This lady came in for an upper endoscopy to evaluate weight loss and colonoscopy to investigate new onset of diarrhea. In addition, she reported a personal history of polyps and a recent CT scan showed thickening of the sigmoid colon, requiring further evaluation. Informed consent was obtained after reviewing the procedures in detail. Description of procedures: EGD/antral biopsy: She was placed in left lateral decubitus position and her vital signs were monitored. Conscious sedation was achieved using Versed and fentanyl. The flexible gastroscope was introduced down the esophagus, past the stomach, into the proximal duodenum. Findings: Esophagus: An uncomplicated hiatal hernia. Stomach: Multiple distal gastric erosions. Biopsy for H. pylori was obtained. Duodenum: normal She tolerated the procedure well and was turned around in preparation for colonoscopy. Impression: Weight loss. Incidental gastric erosions. H. pylori status pending. Colonoscopy/polypectomy: Digital rectal examination was unremarkable. The colonoscope was then introduced into the rectum and advanced all the way up to the cecum. It was then withdrawn slowly and the mucosa examined in a systematic fashion. Findings: 1., 1 mm distal rectal polyp, possibly hyperplastic in nature, that was excised with hot biopsy forceps 2. Sigmoid diverticulosis without any active inflammation. No recurrent polyps were found She tolerated the procedures well and was taken back to the nursing area in a stable condition. Impression: New-onset of diarrhea. Uncomplicated sigmoid diverticulosis. Small rectal polyp excised. Recommend surveillance colonoscopy in 5 years. Copy Copies To 1: BACILIO MCCOY XAVIER M MD September 24, 2017 10:26 am
--- NOTE | 2017-09-24 10:27 | Discharge Inst-Simple/Standard ---
Discharge Inst-Standard Discharge Medications New, Converted or Re-Newed RX: Other Patient Instructions/Follow Up Plan of Care/Instructions/FU: Follow-up with her primary. Repeat colonoscopy in 5 years Activity as Tolerated: Yes Discharge Diet: No Restrictions UZAIR GERMAN MD September 24, 2017 10:27 am
[2017-09-24 10:45] VITALS: BP 142/88
[2017-09-24 11:15] VITALS: BP 142/96
[2017-09-24 11:50] VITALS: BP 142/96
== END 2017-09-24 11:50 | disposition home or self-care (01) ==
LOC: ENDO 08:26
PROVIDERS: ATTEND Surgery
DX: K62.1 Rectal polyp (principal); K25.9 Gastric ulcer, unspecified as acute or chronic, without hemorrhage or perforation; K57.30 Diverticulosis of large intestine without perforation or abscess without bleeding; R19.7 Diarrhea, unspecified; E78.00 Pure hypercholesterolemia, unspecified; I10 Essential (primary) hypertension; E03.9 Hypothyroidism, unspecified; E11.9 Type 2 diabetes mellitus without complications; Z79.82 Long term (current) use of aspirin; Z79.899 Other long term (current) drug therapy; Z79.84 Long term (current) use of oral hypoglycemic drugs
CPT/HCPCS: 88305

== ENCOUNTER 2018-02-02 14:35 | Emergency (ER) | payer MEDICARE ==
[~2018-02-02] VITALS: Ht 167.6 cm; Wt 63.5 kg
[~2018-02-02 14:35] MED LIST changes: +METF-397 PO; -METF500T5 PO
--- OUTSIDE RECORDS SUMMARY | 2018-02-02 14:41 | XMS REPORT ---
Author Author CARINE KANG Organization [facility] [place] Address [address] [place] [address] Care Team Providers Care Nibbler Operator Name Role Phone CARINE KANG Unavailable PROBLEMS Type Condition ICD9-CM Code [id number] Code Onset Dates Condition Status SNOMED Code Problem Dyspepsia R10.13 Active 137939773 Problem Prediabetes R73.03 Active 458485028 Problem Arthritis M19.90 Active 6449189 Problem Mixed hyperlipidemia E78.2 Active 749879885 Problem Acquired hypothyroidism E03.9 Active 770092993 ALLERGIES No Known Allergies ENCOUNTERS Encounter Location Date Diagnosis [facility] [place] [address] [address] Nov, Dyspepsia R10.13 ; Mixed hyperlipidemia E78.2 ; Acquired hypothyroidism E03.9 ; Arthritis M19.90 and Prediabetes R73.03 [facility] [address] [address] 14 Oct, 2017 Dyspepsia R10.13 [facility] [place] [address] [address] 04 Oct, 2017 Dyspepsia R10.13 [facility] [place] [address] [address] Aug, Dyspepsia R10.13 [facility] [place] [address] [address] Aug, Dyspepsia R10.13 and Prediabetes R73.03 [facility] [place] [address] [address] 05 Aug, 2017 Type 2 diabetes mellitus without complication, without long- term current use of insulin E11.9 ; Mixed hyperlipidemia E78.2 ; Acquired hypothyroidism E03.9 and Arthritis M19.90 [facility] [address] [id number] [id number] Jan, Dental examination V72.2 [facility] [address] [id number][place] [id number] Nov, Dental examination V72.2 [facility] [address] [id number][place] [id number] Oct, Dental examination V72.2 [facility] [address] [id number] [place] [id number] Oct, Dental examination V72.2 [facility] [place] [address] [facility]] [id number] [place] [address]- [address] 14 Aug, 2014 [facility] [place] [address] [place] [address] [id number] [place] [address] Aug, [facility] [id number] [place] [address] [id number] Jan, [facility] [address] [id number] [place] [address] [id number] 19 Jan, 2012 [facility] [address] [id number][place] [id number] 18 Jan, 2012 [facility] [address] [id number][place] [id number] 16 Dec, 2011 [facility] [place] [address]00565100[place], [place] [address] Aug, [facility] [place] [address] [facility]] [id number] [place] [address] May, [facility] [place] [address] [facility] 3] [id number], [place] [address] Apr, [facility] [place] [address] [facility]] [id number], [place] [address] Apr, [facility] [place] [address] [id number] [address] Mar, [facility] [place] [address] [id number] [address] Mar, [facility] [place] [address]65[address] [address] Feb, [facility] [place] [address]65[address] [address] Feb, [facility] [place] [id number] [place] [address] 894376- 17[address] Feb, [facility] [place] [id number] [place] [address] 906881- 5687 Feb, [facility] [place] [id number] [place] [address] 421197- 17[address] Apr, [facility] [place] [id number] [place] [address] 449190- 1218 Apr, [facility] [place] [id number] [place] [address]- [address] Apr, [facility] [place] [address]65[address] [address] Mar, [facility] [place] [id number] [place] [address]378- [address] 30 Mar, 2010 [facility] [place] [address]65[address] [address] 17 Mar, 2010 [facility] [place] [address]65100[place] [address] Mar, [facility] [place] [address]65[address] [address] Mar, IMMUNIZATIONS No Known Immunizations SOCIAL HISTORY Never Assessed REASON FOR VISIT Diabetes-TAMMY telles, stomach hurts and feeling nausea, wants to know if she can get back on her blood pressure meds PLAN OF CARE Activity Details Follow Up 3 Months Reason: VITAL SIGNS Height 63 in 2017-12-14 Weight 165 lbs 2017-12-14 Temperature 97.3 degrees Fahrenheit 2017-12-14 Heart Rate 88 bpm 2017-12-14 Respiratory Rate 20 2017-12-14 BMI 29.23 kg/m2 2017-12-14 Blood pressure systolic 112 mmHg 2017-12-14 Blood pressure diastolic 84 mmHg 2017-12-14 MEDICATIONS Medication Instructions Dosage Frequency Start Date End Date Duration Status Lipitor 20 mg Orally Once a day 1 tablet 24h Aug, 30 day(s) Active Levothyroxine Sodium 75 mcg Orally Once a day 1 tablet on an empty stomach in the morning 24h Aug, 30 day(s) Active Omeprazole 20 mg Orally Once a day, 30 min before dinner 1 capsule Oct 30 day(s) Active RESULTS No Results PROCEDURES Procedure Date Ordered Result Body Site [facility] December 14, 2017 GLYCATED HEMOGLOBIN TEST December 14, 2017 VENIPUNCT, ROUTINE* December 14, 2017 MICROALBUMIN, SEMIQUANT December 14, 2017 INSTRUCTIONS MEDICATIONS ADMINISTERED No Known Medications MEDICAL (GENERAL) HISTORY Type Description Date Medical History HBP Medical History Thyroid Problems Medical History Diabetes Medical History Arthritis Surgical History Knee Surgery (not replacement) 2013
--- OUTSIDE RECORDS SUMMARY | 2018-02-02 14:41 | XMS REPORT ---
Author Author JEWEL TEE [facility] Address [address] [place] [address] Care Team Providers Care Annual Greenhouse Manager Name Role Phone JEWEL TEE Unavailable PROBLEMS Type Condition ICD9-CM Code [id number]-CU Code Onset Dates Condition Status SNOMED Code Problem Dyspepsia R10.13 Active 058957478 Problem Prediabetes R73.03 Active 599736157 Problem Arthritis M19.90 Active 8450306 Problem Mixed hyperlipidemia E78.2 Active 899264951 Problem Acquired hypothyroidism E03.9 Active 484490564 ALLERGIES No Known Allergies ENCOUNTERS Encounter Location Date Diagnosis [place] [id number] [address] Nov, Dyspepsia R10.13 ; Mixed hyperlipidemia E78.2 ; Acquired hypothyroidism E03.9 ; Arthritis M19.90 and Prediabetes R73.03 [facility] [address] [address] 14 Oct, 2017 Dyspepsia R10.13 [place] [address] [address] 04 Oct, 2017 Dyspepsia R10.13 [facility] [address] [address] Aug, Dyspepsia R10.13 [place] [address] [address] Aug, Dyspepsia R10.13 and Prediabetes R73.03 [place] [address] [address] 05 Aug, 2017 Type 2 diabetes mellitus without complication, without long- term current use of insulin E11.9 ; Mixed hyperlipidemia E78.2 ; Acquired hypothyroidism E03.9 and Arthritis M19.90 [facility] [address] [id number] [phone] Jan, Dental examination V72.2 [facility] [address] [id number][place] [id number] Nov, Dental examination V72.2 [facility] [address] [id number][place] [id number] Oct, Dental examination V72.2 [facility] [id number] [place] [address] [id number] Oct, Dental examination V72.2 [facility] [id number] [place] [address] 14 Aug, 2014 [facility] [id number] [place] [address] Aug, [facility] [id number] [place] [address] [id number] Jan, [facility] [id number] [place] [address] [id number] 19 Jan, 2012 [facility] [id number] [place] [address] [id number] 18 Jan, 2012 [facility] [id number] [place] [address] [id number] 16 Dec, 2011 [facility] [address]00565[place] [address] Aug, [facility] [address] [id number] [place] [address]- 76[address] May, [facility] [id number] [place] [address] 19967- 6398 Apr, [facility] [id number] [place] [address]95- 5556 Apr, [facility] [address]65100[place] [address] Mar, [facility] [address]65[address] [address]- [address] Mar, [facility] [address] [place] [address] 07767- 7453 Feb, [facility] [address]65[place] Feb, [facility] [id number] [place] [address] 807623- 8144 Feb, [facility] [address] [place] [address] 235268- 8145 Feb, [facility] [id number] [place] [address] 262019- 7884 Apr, [facility] [id number] [place] [address] 34074- 6110 Apr, [facility] [id number] [place] [address] 8[address]15- 1388 Apr, [facility] [address]65[address] [address]- 16[address] Mar, [facility] [id number] [place] [address] 20521- 5398 Mar, [facility] [address]65[address] [address]- [address] Mar, [facility] [address] [place] [address] 12607- 5329 Mar, [facility] [address] [address] Mar, IMMUNIZATIONS No Known Immunizations SOCIAL HISTORY Never Assessed REASON FOR VISIT stomach ache Pt c/o stomach pain which is worse with food for 2 months, states lat 2 days has gotten worse and she is very nauseated TAMMY Gutiérrez PLAN OF CARE Activity Details Follow Up w/ Dr. Rothman 11/26/2017 Reason:dyspepsia VITAL SIGNS Height 63 in 2017-11-01 Weight 168.8 lbs 2017-11-01 Temperature 98.7 degrees Fahrenheit 2017-11-01 Heart Rate 86 bpm 2017-11-01 Respiratory Rate 20 2017-11-01 BMI 29.90 kg/m2 2017-11-01 Blood pressure systolic 122 mmHg 2017-11-01 Blood pressure diastolic 68 mmHg 2017-11-01 MEDICATIONS Medication Instructions Dosage Frequency Start Date End Date Duration Status Mobic 15 mg Orally Once a day 1 tablet 24h Aug, 3 Dec, 2017 30 day(s) Active Omeprazole 20 mg Orally Once a day, 30 min before dinner 1 capsule 04 Oct 30 day(s) Active Levothyroxine Sodium 75 mcg Orally Once a day 1 tablet on an empty stomach in the morning 24h Aug, 30 day(s) Active Zantac 150 MG Orally twice a day 1 tab 12h 90 Active Lipitor 20 mg Orally Once a day 1 tablet 24h Aug, 30 day(s) Active Bentyl 10 mg Orally 2 times a day 2 capsules 12h 14 Oct, 2017 Oct, 07 days Active RESULTS No Results PROCEDURES No Known procedures INSTRUCTIONS MEDICATIONS ADMINISTERED No Known Medications MEDICAL (GENERAL) HISTORY Type Description Date Medical History HBP Medical History Thyroid Problems Medical History Diabetes Medical History Arthritis Surgical History Knee Surgery (not replacement) 2013
--- OUTSIDE RECORDS SUMMARY | 2018-02-02 14:42 | XMS REPORT ---
Author Author CARINE KANG Organization [facility] Address [address] [place] [address] Care Team Providers Care Member Service Specialist Name Role Phone CARINE KANG Unavailable PROBLEMS Type Condition ICD9-CM Code AYY75-ON Code Onset Dates Condition Status SNOMED Code Problem Dyspepsia R10.13 Active 426558027 Problem Prediabetes R73.03 Active 432718243 Problem Arthritis M19.90 Active 0363564 Problem Mixed hyperlipidemia E78.2 Active 623551784 Problem Acquired hypothyroidism E03.9 Active 208033409 ALLERGIES No Known Allergies ENCOUNTERS Encounter Location Date Diagnosis [facility] [address] [address] Nov, Dyspepsia R10.13 ; Mixed hyperlipidemia E78.2 ; Acquired hypothyroidism E03.9 ; Arthritis M19.90 and Prediabetes R73.03 [facility] [address] [address] 14 Oct, 2017 Dyspepsia R10.13 [facility] [address] [address] 04 Oct, 2017 Dyspepsia R10.13 [facility] [address] [address] Aug, Dyspepsia R10.13 [facility] [address] [address] Aug, Dyspepsia R10.13 and Prediabetes R73.03 [facility] [address] [address] 05 Aug, 2017 Type 2 diabetes mellitus without complication, without long- term current use of insulin E11.9 ; Mixed hyperlipidemia E78.2 ; Acquired hypothyroidism E03.9 and Arthritis M19.90 [facility] [address] [id number] [place] [phone] Jan, Dental examination V72.2 [facility] [address] [id number] [place] [id number] Nov, Dental examination V72.2 [facility] [address] [id number] [place] [phone] Oct, Dental examination V72.2 [facility] [id number] [place] [address] [phone] Oct, Dental examination V72.2 [facility] [address] [facility] [id number] [place] [address]- [address]6 14 Aug, 2014 [facility] [address] [place] [id number] [place] [address]- [address] Aug, [facility] [id number] [place] [address] [id number] Jan, [facility] [address] [id number] [place] [address] [id number] 19 Jan, 2012 [facility] [address] [id number] [id number] 18 Jan, 2012 [facility] [address] [id number][place] [phone] 16 Dec, 2011 [facility] [address]00565[place] [address] Aug, [facility] [address] [facility] [id number] [place] [address]- 8519 May, [facility] [address] [facility] [id number] [place] [address]- 2[address] Apr, [facility] [address] [facility] [id number] [place] [address]- 0171 Apr, [facility] [address] [place] [address] [id number] [address]- 1376 Mar, [facility] [address] [place] [address] [id number] [address]- 139[address] Mar, [facility] [address]65[address] [address]- 6465 Feb, [facility] [address] [facility] [id number] [place] [address]- 5692 Feb, [facility] [address]65[address] [address]- 1317 Feb, [facility] [address] [facility] [id number] [place] [address]- 2357 Feb, [facility] [id number] [place] [address] 62946- 8891 Apr, [facility] [address]65[address] [address]- 7338 Apr, [facility] [address]65[place] [address]- 2577 Apr, [facility] [address]65[address] [address]- 9[address] Mar, [facility] [address]65[address] [address]- 295[address] 30 Mar, 2010 [facility] [address]65[address] [address]- 48[address] 17 Mar, 2010 [facility] [address]65[address] [address]- 6292 Mar, [facility] [address] [place] [address] [id number] [address]- 6859 Mar, IMMUNIZATIONS No Known Immunizations SOCIAL HISTORY Never Assessed REASON FOR VISIT Establish Care PLAN OF CARE Activity Details Follow Up 2 Months Reason: VITAL SIGNS Height 63 in 2017-08-23 Weight 170.8 lbs 2017-08-23 Temperature 99 degrees Fahrenheit 2017-08-23 Heart Rate 80 bpm 2017-08-23 Respiratory Rate 16 2017-08-23 BMI 30.25 kg/m2 2017-08-23 Blood pressure systolic 142 mmHg 2017-08-23 Blood pressure diastolic 78 mmHg 2017-08-23 MEDICATIONS Medication Instructions Dosage Frequency Start Date End Date Duration Status Levothyroxine Sodium 75 mcg Orally Once a day 1 tablet on an empty stomach in the morning 24h Aug, 30 day(s) Active Mobic 15 mg Orally Once a day 1 tablet 24h Aug, Dec, 30 day(s) Active Metformin HCl 500 mg Orally Twice a day 1 tablet with meals 12h Aug, 30 day(s) Active Lipitor 20 mg Orally Once a day 1 tablet 24h Aug, 30 day(s) Active levothyroxine 75 mcg take 1 capsule by Oral route 1 time per day Jan Active Mobic 15 mg take 1 Tablet by Oral route 1 time per dayPRNas needed for arthritis pain Jan, Active Lipitor 20 mg take 1 tablet by Oral route 1 time per day Jan, Active RESULTS No Results PROCEDURES Procedure Date Ordered Result Body Site COMPREHEN METABOLIC PANEL August 23, 2017 INSTRUCTIONS MEDICATIONS ADMINISTERED No Known Medications MEDICAL (GENERAL) HISTORY Type Description Date Medical History HBP Medical History Thyroid Problems Medical History Diabetes Medical History Arthritis Surgical History Knee Surgery (not replacement) 2013
--- OUTSIDE RECORDS SUMMARY | 2018-02-02 14:42 | XMS REPORT ---
Author Author CARINE KANG Organization [facility], [place] Address [address] [place] [address] Care Team Providers Care Road Engineer Freight Name Role Phone CARINE KANG Unavailable PROBLEMS Type Condition ICD9-CM Code [id number] Code Onset Dates Condition Status SNOMED Code Problem Dyspepsia R10.13 Active 127346727 Problem Prediabetes R73.03 Active 612198957 Problem Arthritis M19.90 Active 1935744 Problem Mixed hyperlipidemia E78.2 Active 614126049 Problem Acquired hypothyroidism E03.9 Active 899716032 ALLERGIES No Known Allergies ENCOUNTERS Encounter Location Date Diagnosis [facility], [place] [address] [address] Nov, Dyspepsia R10.13 ; Mixed hyperlipidemia E78.2 ; Acquired hypothyroidism E03.9 ; Arthritis M19.90 and Prediabetes R73.03 [facility] [address] [address] 14 Oct, 2017 Dyspepsia R10.13 [facility] [place] [address] [address] 04 Oct, 2017 Dyspepsia R10.13 [facility] [place] [address] [address] Aug, Dyspepsia R10.13 [facility] [place] [address] [address] Aug, Dyspepsia R10.13 and Prediabetes R73.03 [facility] [place] [address] [address] 05 Aug, 2017 Type 2 diabetes mellitus without complication, without long- term current use of insulin E11.9 ; Mixed hyperlipidemia E78.2 ; Acquired hypothyroidism E03.9 and Arthritis M19.90 [facility] [address] [id number] [id number] Jan, Dental examination V72.2 [facility] [address] [id number] [place] [id number] Nov, Dental examination V72.2 [facility] [address] [id number] [place] [id number] Oct, Dental examination V72.2 [facility] [id number] [place] [id number] Oct, Dental examination V72.2 [facility] [place] [address] [facility] [id number] [place] [address] 14 Aug, 2014 [facility] [place] [id number] [place] [address] Aug, [facility] [id number] [place] [id number] Jan, [facility] [address] [id number] [place] [address] [id number] 19 Jan, 2012 [facility] [address] [id number] [id number] 18 Jan, 2012 [facility] [address] [id number][place] [id number] 16 Dec, 2011 [facility] [place] [address]00565100[place] [address] Aug, [facility] [place] [address] [facility] [id number] [place] [address] May, [facility] [place] [address] [facility] [id number] [place] [address] Apr, [facility] [place] [address] [facility] [id number] [place] [address] Apr, [facility] [place] [address] [id number] [address] Mar, [facility] [place] [address] [id number] [address] Mar, [facility] [place] [address]00565100[place] [address] Feb, [facility] [place] [address]00565100[place] [address] Feb, [facility] [place] [address]00565100[place] [address] Feb, [facility] [place] [address]00565100[place] [address] Feb, [facility] [place] [id number] [place] [address] 159966- [address] Apr, [facility] [place] [address]00565100[place] [address] Apr, [facility] [place] [id number] [place] [address]- [address] Apr, [facility] [place] [address]00565100[place] [address] Mar, [facility] [place] [id number] [place] [address]- [address] 30 Mar, 2010 [facility] [place] [address]00565100[place] [address] Mar, [facility] [place] [address]00565100[place] [address] Mar, [facility] [place] [address]65100[place] Mar, IMMUNIZATIONS No Known Immunizations SOCIAL HISTORY Never Assessed REASON FOR VISIT Stomach ache has been bothering the patient for the past week - [facility] PLAN OF CARE Activity Details Follow Up 2 Months Reason: VITAL SIGNS Height 63 in 2017-09-04 Weight 167 lbs 2017-09-04 Temperature 98.3 degrees Fahrenheit 2017-09-04 Heart Rate 84 bpm 2017-09-04 Respiratory Rate 18 2017-09-04 BMI 29.58 kg/m2 2017-09-04 Blood pressure systolic 152 mmHg 2017-09-04 Blood pressure diastolic 98 mmHg 2017-09-04 MEDICATIONS Medication Instructions Dosage Frequency Start Date End Date Duration Status Zantac 150 MG Orally twice a day 1 tab 12h Aug, 14 days Active Mobic 15 mg Orally Once a day 1 tablet 24h Aug, Dec, 30 day(s) Active Lipitor 20 mg Orally Once a day 1 tablet 24h Aug, 30 day(s) Active Levothyroxine Sodium 75 mcg Orally Once a day 1 tablet on an empty stomach in the morning 24h Aug, 30 day(s) Active RESULTS Name Result Date Reference Range A1C (IN HOUSE) 2017-09-04 A1C IN HOUSE 5.6 4.3 - 5.6 % Previous A1c - Lot [id number] Exp date 06/2019 PROCEDURES Procedure Date Ordered Result Body Site GLYCATED HEMOGLOBIN TEST September 04, 2017 INSTRUCTIONS MEDICATIONS ADMINISTERED No Known Medications MEDICAL (GENERAL) HISTORY Type Description Date Medical History HBP Medical History Thyroid Problems Medical History Diabetes Medical History Arthritis Surgical History Knee Surgery (not replacement) 2013
--- OUTSIDE RECORDS SUMMARY | 2018-02-02 14:42 | XMS REPORT ---
Author Author CARINE KANG Organization [facility] Address [address] [place] [address] Care Team Providers Care Model Photographers' Name Role Phone CARINE KANG Unavailable PROBLEMS Type Condition ICD9-CM Code [id number] Code Onset Dates Condition Status SNOMED Code Problem Dyspepsia R10.13 Active 823175051 Problem Prediabetes R73.03 Active 088566561 Problem Arthritis M19.90 Active 6513699 Problem Mixed hyperlipidemia E78.2 Active 089849597 Problem Acquired hypothyroidism E03.9 Active 950487323 ALLERGIES No Information ENCOUNTERS Encounter Location Date Diagnosis [facility] [address] [address] Nov, Dyspepsia R10.13 ; Mixed hyperlipidemia E78.2 ; Acquired hypothyroidism E03.9 ; Arthritis M19.90 and Prediabetes R73.03 [facility] IN [facility] [address] [address] 14 Oct, [address] [facility] [address] [address] 04 Oct, [address] [facility] [address] [address] Aug, Dyspepsia R10.13 [facility] [address] [address] Aug, Dyspepsia R10.[address] [facility] [address] [address] 05 Aug, 2017 Type 2 diabetes mellitus without complication, without long- term current use of insulin E11.9 ; Mixed hyperlipidemia E78.2 ; Acquired hypothyroidism E03.9 and Arthritis M19.90 [facility] [address] [id number] [id number] Jan, Dental examination V72.2 [facility] [address] [id number][place] [id number] Nov, Dental examination V72.2 [facility] [address] [id number] [phone] Oct, Dental examination V72.2 [facility] [address] [id number] [place] [id number] Oct, Dental examination V72.2 [facility] [id number] [place] [address]- [address]166 [address], [address] [facility] [id number] [place] [address]- [address] Aug, [facility] [address] [id number] [id number] Jan, [facility] [address] [id number] [place] [id number] 19 Jan, 2012 [facility] [address] [id number] [place] [id number] 18 Jan, 2012 [facility] [address] [id number] [place] [id number] [address] Dec, [address] [facility] [address]00565100[place], [place] [address] Aug, [facility] [address] [facility] [id number] [place] [address] May, [facility] [address] [facility] [id number] [address] Apr, [facility] [address] [facility] [id number] [place] [address]- [address] Apr, [facility] [address] [facility] [id number][place] [address] Mar, [facility] [address]00565100[place], [place] [address] Mar, [facility] [address]00565100[place] [address] Feb, [facility] [address] [facility] [id number], [place] [address]91 Feb, [facility] [address]00565100[place], [place] [address] Feb, [facility] [address]00565100[place], [place] [address]84 Feb, [facility] [id number] [place] [address]- [address] Apr, [facility] [address]00565100[place] Apr, [facility] [id number] [place] [address]- [address] Apr, [facility] [address]00565100[place] [address] Mar, [facility] [address]00565100[place] [address] 37[address] Mar, [facility] [address]00565100[place] [address]65 Mar, [facility] [address]00565100[place], [place] [address] Mar, [facility] [address]65[address] [address] Mar, IMMUNIZATIONS No Known Immunizations SOCIAL HISTORY Never Assessed REASON FOR VISIT PLAN OF CARE VITAL SIGNS MEDICATIONS Medication Instructions Dosage Frequency Start Date End Date Duration Status Zantac 150 MG Orally twice a day 1 tab 12h Aug, 14 days Active RESULTS No Results PROCEDURES No Known procedures INSTRUCTIONS MEDICATIONS ADMINISTERED No Known Medications MEDICAL (GENERAL) HISTORY Type Description Date Medical History HBP Medical History Thyroid Problems Medical History Diabetes Medical History Arthritis Surgical History Knee Surgery (not replacement) 2013
--- OUTSIDE RECORDS SUMMARY | 2018-02-02 14:42 | XMS REPORT ---
Author Author CARINE KANG Organization [facility] Address [address] [place] [address] Care Team Providers Care Herd Tester Name Role Phone CARINE KANG Unavailable PROBLEMS Type Condition ICD9-CM Code [id number] Code Onset Dates Condition Status SNOMED Code Problem Dyspepsia R10.13 Active 032688492 Problem Prediabetes R73.03 Active 687185335 Problem Arthritis M19.90 Active 8529542 Problem Mixed hyperlipidemia E78.2 Active 393414781 Problem Acquired hypothyroidism E03.9 Active 167428176 ALLERGIES No Known Allergies ENCOUNTERS Encounter Location Date Diagnosis [facility] [address] [address] Nov, Dyspepsia R10.13 ; Mixed hyperlipidemia E78.2 ; Acquired hypothyroidism E03.9 ; Arthritis M19.90 and Prediabetes R73.03 [facility] WALK IN [facility] [address] [address] 14 Oct, 2017 Dyspepsia R10.13 [facility] [address] [address] 04 Oct, 2017 Dyspepsia R10.13 [facility] [address] [address] Aug, Dyspepsia R10.13 [facility] [address] [address] Aug, Dyspepsia R10.13 and Prediabetes R73.03 [facility] [address] [address] 05 Aug, 2017 Type 2 diabetes mellitus without complication, without long- term current use of insulin E11.9 ; Mixed hyperlipidemia E78.2 ; Acquired hypothyroidism E03.9 and Arthritis M19.90 [facility] [address] [id number] [id number] Jan, Dental examination V72.2 [facility] [address] [id number][place] [id number] Nov, Dental examination V72.2 [facility] [address] [id number] [phone] Oct, Dental examination V72.2 [facility] [id number] [place] [id number] Oct, Dental examination V72.2 [facility] [address] [facility] [id number] [place] [address]- [address] 14 Aug, 2014 [facility] [id number] [place] [address]- [address] Aug, [facility] [address] [id number] [place] [id number] Jan, [facility] [address] [id number] [place] [address] [id number] 19 Jan, 2012 [facility] [address] [id number][place] [id number] 18 Jan, 2012 [facility] [address] [id number] [id number] 16 Dec, 2011 [facility] [address]00565[place], [place] [address] Aug, [facility] [address] [facility] [id number] [place] [address]- [address] May, [facility] [address] [facility] [id number][place] [address]- [address] Apr, [facility] [address] [facility] [id number], [place] [address]- [address] Apr, [facility] [address] [id number] [address] Mar, [facility] [address] [id number]- [address] Mar, [facility] [address]00565100[place], [place] [address]- [address] Feb, [facility] [address]00565[place] Feb, [facility] [address]00565[place] Feb, [facility] [address] [facility] [id number][place] [address]- [address] Feb, [facility] [address] [place] [address] 171295- 28[address] Apr, [facility] [address]00565100[place], [place] [address]- 9[address] Apr, [facility] [address] [place] [address]- [address] Apr, [facility] [address]00565100[place] [address]- [address] Mar, [facility] [address]00565100[place], [place] [address]- 25[address] Mar, [facility] [address]00565100[place], [place] [address]- 8160 Mar, [facility] [address]00565100[place], [place] [address]- 8[address] Mar, [facility] [address]00565100[place], [place] [address]- [address] Mar, IMMUNIZATIONS No Known Immunizations SOCIAL HISTORY Never Assessed REASON FOR VISIT Diabetes/Hypothyroidism/ PT was also seen in the ER for Diverticulitdavid Hunter [place] PLAN OF CARE Activity Details Follow Up 4 Weeks Reason: VITAL SIGNS Height 63 in 2017-10-22 Weight 169.5 lbs 2017-10-22 Temperature 98.7 degrees Fahrenheit 2017-10-22 Heart Rate 84 bpm 2017-10-22 Respiratory Rate 20 2017-10-22 BMI 30.02 kg/m2 2017-10-22 Blood pressure systolic 98 mmHg 2017-10-22 Blood pressure diastolic 68 mmHg 2017-10-22 MEDICATIONS Medication Instructions Dosage Frequency Start Date End Date Duration Status Levothyroxine Sodium 75 mcg Orally Once a day 1 tablet on an empty stomach in the morning 24h Aug, 30 day(s) Active Lipitor 20 mg Orally Once a day 1 tablet 24h Aug, 30 day(s) Active Zantac 150 MG Orally twice a day 1 tab 12h 90 Active Omeprazole 20 mg Orally Once a day, 30 min before dinner 1 capsule Oct 30 day(s) Active Mobic 15 mg Orally Once a day 1 tablet 24h Aug, Dec, 30 day(s) Active RESULTS No Results PROCEDURES No Known procedures INSTRUCTIONS MEDICATIONS ADMINISTERED No Known Medications MEDICAL (GENERAL) HISTORY Type Description Date Medical History HBP Medical History Thyroid Problems Medical History Diabetes Medical History Arthritis Surgical History Knee Surgery (not replacement) 2013
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
[2018-02-02] MEDS ORDERED: diphenhydrAMINE 50 MG/ML INJ (BENADRYL) IVP ONE (14:45)
[2018-02-02] MEDS ORDERED: NS IV 1000 ML 1,000 ML IV SCH (14:45)
[2018-02-02] MEDS ORDERED: ONDANSETRON 4 MG/2 ML (SDV) Z0FRAN IVP ONE (14:45)
--- NOTE | 2018-02-02 15:00 | ED General ---
General Chief Complaint: Dizziness/Syncope Stated Complaint: NAUSEOUS,DIZZY Source of Information: Patient Exam Limitations: No Limitations History of Present Illness Date Seen by Provider: Feb 02, 2018 Time Seen by Provider: 14:56 Initial Comments To ER with nausea, dizziness and diffuse itchiness that she first noticed about 9 AM upon awakening this morning. No headache no fevers no chills and no history of this. No abdominal pain. She has had about 90 pound unintentional weight loss over the past 8 months. Timing/Duration: 4-6 Hours Severity: Moderate Associated Systoms: No Headaches; Nausea/Vomiting Allergies and Home Medications Allergies Coded Allergies: No Known Drug Allergies (Verified , 09/24/17) Home Medications Ascorbic Acid 500 Mg Capsule, 500 MG PO DAILY, (Reported) Aspirin 81 Mg Tab.chew, 81 MG PO DAILY, (Reported) Atorvastatin Calcium 20 Mg Tablet, 20 MG PO DAILY, (Reported) Calcium Carbonate 500 Mg Tablet, 500 MG PO DAILY, (Reported) Cholecalciferol (Vitamin D3) 2,000 Unit Capsule, 2,000 UNIT PO DAILY, (Reported) Fluticasone Propionate 9.9 Ml Lisco.susp, 1 SPRAY NS BID, (Reported) 1 SPRAY EACH NARE DAILY Lactobacillus Combo No.11 1 Each Cap.sprink, 2 EACH PO BID Prescribed by: LYSSA DRUMMOND on 09/20/171855 Levothyroxine Sodium 75 Mcg Tablet, 75 MCG PO DAILY, (Reported) Metformin HCl 500 Mg Tablet, 500 MG PO BID, (Reported) Multivitamin 1 Each Tablet, 1 EACH PO DAILY, (Reported) [place] 3 Polyunsat Fatty Acids 1,000 Mg Cap, 1,000 MG PO DAILY, (Reported) Ranitidine HCl 150 Mg Tablet, 150 MG PO BID, (Reported) Patient Home Medication List Home Medication List Reviewed: Yes Review of Systems Review of Systems Constitutional: see HPI EENTM: see HPI Respiratory: no symptoms reported Cardiovascular: no symptoms reported Gastrointestinal: nausea Genitourinary: no symptoms reported Musculoskeletal: no symptoms reported Skin: no symptoms reported Psychiatric/Neurological: See HPI, Other (dizziness) Hematologic/Lymphatic: No Symptoms Reported Immunological/Allergic: no symptoms reported Past Wolwjxd-Tfgwfg-Ahvidj Hx Patient Social History Recent Foreign Travel: No Contact w/Someone Who Travel: No Recent Hopitalizations: No Immunizations Up To Date Tetanus Booster (TDap): Unknown Date of Pneumonia Vaccine: Mar 05, 2015 Date of Influenza Vaccine: Mar 05, 2017 Seasonal Allergies Seasonal Allergies: Yes (MILD) Past Medical History Surgeries: Yes Gallbladder, Tonsillectomy Respiratory: No Cardiac: Yes High Cholesterol, Hypertension Neurological: No Reproductive Disorders: No Sexually Transmitted Disease: No HIV/AIDS: No Gastrointestinal: Yes (WT LOSS) Gastroesophageal Reflux, Polyps Musculoskeletal: No Arthritis Endocrine: Yes (DM, THYROID DZ- TAKES METFORMIN AND LEVOTHYROXINE) Hypothyroidsim, Diabetes, Non-Insulin dep Loss of Vision: Bilateral Hearing Impairment: Denies Cancer: No Psychosocial: Yes Anxiety, Depression Integumentary: No Blood Disorders: No Adverse Reaction/Blood Tranf: No (N/A) Family Medical History Prostate cancer 19 FATHER Respiratory disorder 19 MOTHER ( pnuemonia at age 85) CAD Over 55 Years Old, Hypertension Physical Exam Vital Signs Vital Signs - First Documented 02/02/18 14:40 Temp 97.9 Pulse 78 Resp 18 B/P (MAP) 148/55 (86) Pulse Ox 99 Capillary Refill : Height, Weight, BMI Height: 5'2.00" Weight: 160lbs. 8.0oz. 72.753275kd; 29.4 BMI Method:Stated General Appearance: No Apparent Distress, WD/WN Eyes: Bilateral Eye Normal Inspection, Bilateral Eye PERRL, Bilateral Eye EOMI HEENT: PERRL/EOMI, TMs Normal Neck: Full Range of Motion, Normal Inspection Respiratory: No Accessory Muscle Use, No Respiratory Distress Cardiovascular: Regular Rate, Rhythm, Normal Peripheral Pulses Gastrointestinal: Non Tender, Soft Extremity: Normal Capillary Refill, Normal Inspection, Other (she does walk with an unsteady gait and has to hold onto railing for stability) Neurologic/Psychiatric: Alert Progress/Results/Core Measures Suspected Sepsis SIRS Temperature: Pulse: Respiratory Rate: Laboratory Tests 02/02/18 14:53: White Blood Count 7.3 Blood Pressure / Mean: Laboratory Tests 02/02/18 14:53: Creatinine 0.96, Platelet Count 282, Total Bilirubin 0.5 Results/Orders Lab Results Laboratory Tests Test 02/02/18 14:45 02/02/18 14:53 Range/Units Urine Color YELLOW Urine Clarity CLEAR Urine pH 6.5 5-9 Urine Specific [place] 1.015 L 1.016-1.022 Urine Protein NEGATIVE NEGATIVE Urine Glucose (UA) NEGATIVE NEGATIVE Urine Ketones NEGATIVE NEGATIVE Urine Nitrite NEGATIVE NEGATIVE Urine Bilirubin NEGATIVE NEGATIVE Urine Urobilinogen NORMAL NORMAL MG/DL Urine Leukocyte Esterase 1+ H NEGATIVE Urine RBC (Auto) 2+ H NEGATIVE Urine RBC 0-2 /HPF Urine WBC 0-2 /HPF Urine Squamous Epithelial Cells 0-2 /HPF Urine Crystals NONE /LPF Urine Bacteria NONE /HPF Urine Casts NONE /LPF Urine Mucus NEGATIVE /LPF Urine Culture Indicated NO White Blood Count 7.3 4.3-11.0 10^3/uL Red Blood Count 4.69 4.35-5.85 10^6/uL Hemoglobin 13.7 11.5-16.0 G/DL Hematocrit 41 35-52 % Mean Corpuscular Volume 88 80-99 FL Mean Corpuscular Hemoglobin 29 25-34 PG Mean Corpuscular Hemoglobin Concent 33 32-36 G/DL Red Cell Distribution Width 14.5 10.0-14.5 % Platelet Count 282 130-400 10^3/uL Mean Platelet Volume 9.2 7.4-10.4 FL Neutrophils (%) (Auto) 57 42-75 % Lymphocytes (%) (Auto) 32 12-44 % Monocytes (%) (Auto) 8 0-12 % Eosinophils (%) (Auto) 3 0-10 % Basophils (%) (Auto) 1 0-10 % Neutrophils # (Auto) 4.2 1.8-7.8 X 10^3 Lymphocytes # (Auto) 2.3 1.0-4.0 X 10^3 Monocytes # (Auto) 0.6 0.0-1.0 X 10^3 Eosinophils # (Auto) 0.2 0.0-0.3 10^3/uL Basophils # (Auto) 0.0 0.0-0.1 10^3/uL Sodium Level 139 135-145 MMOL/L Potassium Level 4.0 3.6-5.0 MMOL/L Chloride Level 105 98-107 MMOL/L Carbon Dioxide Level 21 21-32 MMOL/L Anion Gap 13 5-14 MMOL/L Blood Urea Nitrogen 20 H 7-18 MG/DL Creatinine 0.96 0.60-1.30 MG/DL Estimat Glomerular Filtration Rate 58 BUN/Creatinine Ratio 21 Glucose Level 96 70-105 MG/DL Calcium Level 9.3 8.5-10.1 MG/DL Corrected Calcium 9.3 8.5-10.1 MG/DL Total Bilirubin 0.5 0.1-1.0 MG/DL Aspartate Amino Transf (AST/SGOT) 17 5-34 U/L Alanine Aminotransferase (ALT/SGPT) 22 0-55 U/L Alkaline Phosphatase 64 40-136 U/L Total Protein 6.4 6.4-8.2 GM/DL Albumin 4.0 3.2-4.5 GM/DL My Orders Orders - HUDSON KWAN APRN Cbc With Automated Diff (02/02/18 14:45) Comprehensive Metabolic Panel (02/02/18 14:45) Ua Culture If Indicated (02/02/18 14:45) Iv Heplock-Insert (Order) (02/02/18 14:45) Ns Iv 1000 Ml (Sodium Chloride 0.9%) (02/02/18 14:45) Ondansetron Injection (Zofran Injectio (02/02/18 14:45) Diphenhydramine Injection (Benadryl Inje (02/02/18 14:45) Mri Brain W/O Contrast (02/02/18 14:56) Medications Given in ED Current Medications Medications Dose Ordered Sig/Amy Route Start Time Stop Time Status Last Admin Dose Admin Diphenhydramine HCl 25 mg ONCE ONCE IVP 02/02/18 14:45 02/02/18 14:46 DC 02/02/18 15:06 25 MG Ondansetron HCl 4 mg ONCE ONCE IVP 02/02/18 14:45 02/02/18 14:46 DC 02/02/18 15:07 4 MG Vital Signs/I&O 02/02/18 14:40 Temp 97.9 Pulse 78 Resp 18 B/P (MAP) 148/55 (86) Pulse Ox 99 Capillary Refill : Departure Impression Primary Impression: Nausea Additional Impressions: Dizziness chronic cerebellar infarct Itching Disposition: 01 HOME, SELF-CARE Condition: Stable Departure-Patient Inst. Decision time for Depature: 16:31 [place]: [facility] [place] Primary Care Physician Patient Instructions: Vertigo (a Type of Dizziness) (DC) Add. Discharge Instructions: 1. If you do not already U should take a baby aspirin daily. Follow-up with your doctor next week and return to the emergency room for any worsening symptoms. Benadryl every 4-6 hours as needed for itching. All discharge instructions reviewed with patient and/or family. Voiced understanding. HUDSON KWAN APRN Feb 02, 2018 15:00
[2018-02-02 15:05] LABS: BASOPHILS % (AUTO) 1 % (0-10); EOSINOPHILS # (AUTO) 0.2 10^3/uL (0.0-0.3); EOSINOPHILS % (AUTO) 3 % (0-10); HEMATOCRIT 41 % (35-52); HEMOGLOBIN 13.7 G/DL (11.5-16.0); LYMPHOCYTES # (AUTO) 2.3 X 10^3 (1.0-4.0); LYMPHOCYTES % (AUTO) 32 % (12-44); MEAN CORPUSCULAR HEMOGLOBIN 29 PG (25-34); MEAN CORPUSCULAR HGB CONC 33 G/DL (32-36); MEAN CORPUSCULAR VOLUME 88 FL (80-99); MEAN PLATELET VOLUME 9.2 FL (7.4-10.4); MONOCYTES # (AUTO) 0.6 X 10^3 (0.0-1.0); MONOCYTES % (AUTO) 8 % (0-12); NEUTROPHILS # (AUTO) 4.2 X 10^3 (1.8-7.8); NEUTROPHILS % (AUTO) 57 % (42-75); PLATELET COUNT 282 10^3/uL (130-400); RED BLOOD COUNT 4.69 10^6/uL (4.35-5.85); RED CELL DISTRIBUTION WIDTH 14.5 % (10.0-14.5); WHITE BLOOD COUNT 7.3 10^3/uL (4.3-11.0)
[2018-02-02 15:11] LABS: BILIRUBIN,URINE NEGATIVE (NEGATIVE); CLARITY,URINE CLEAR; COLOR,URINE YELLOW; GLUCOSE, URINE (UA) NEGATIVE (NEGATIVE); KETONES,URINE NEGATIVE (NEGATIVE); LEUKOCYTE ESTERASE ,URINE 1+ (NEGATIVE); NITRITE,URINE NEGATIVE (NEGATIVE); PH,URINE 6.5 (5-9); PROTEIN,URINE NEGATIVE (NEGATIVE); UROBILINOGEN,URINE NORMAL (NORMAL)
[2018-02-02 15:18] LABS: RBC,URINE 0-2 /HPF; SQUAMOUS EPITHELIAL CELL,UR 0-2 /HPF; WBC,URINE 0-2 /HPF
[2018-02-02 15:27] LABS: BILIRUBIN,TOTAL 0.5 MG/DL (0.1-1.0); CALCIUM 9.3 MG/DL (8.5-10.1); CREATININE SERUM 0.96 MG/DL (0.60-1.30); TOTAL PROTEIN 6.4 GM/DL (6.4-8.2)
--- NOTE | 2018-02-02 15:46 | Diagnostic Imaging Report ---
PROCEDURE: MR imaging of the brain without contrast. TECHNIQUE: Multiplanar, multisequence MR imaging of the brain was performed without contrast. INDICATION: Dizziness. Nausea. Near syncope. COMPARISON: None. FINDINGS: Mild generalized cerebral and cerebellar parenchymal volume loss. 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 No other abnormal intracranial signal. No restricted water diffusion or hemosiderin deposition. Normal morphology including the major midline structures, sella, posterior fossa and cerebellar pontine angle. The orbits are unremarkable on this nondedicated exam. No hydrocephalus or extra-axial fluid collections. Normal intracranial flow voids. The paranasal sinuses and mastoids are clear. Normal bone marrow signal. IMPRESSION: 1. No acute intracranial MRI findings. 2. 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 Dictated by: Dictated on workstation # [id number]
[2018-02-02] MEDS ORDERED: MECLIZINE 25 MG (ANTIVERT) TAB ONE (16:35)
[2018-02-02] MEDS ORDERED: MECLIZINE 25 MG (ANTIVERT) TAB PO ONE (16:45)
[2018-02-02] MEDS ORDERED: CATHETER FLUSH 10 ML SYR IV PRN (16:45)
[2018-02-02] MEDS ORDERED: NS 250 ML (IVPB) BAG IV ONE (16:45)
[2018-02-02] MEDS ORDERED: IOHEXOL 350 MG/ML 100 ML (OMNIPAQUE 350) VIAL IV ONE (16:45)
--- NOTE | 2018-02-02 17:22 | Diagnostic Imaging Report ---
PROCEDURE: CT angiography of the head and CT angiography of the neck with and without contrast. TECHNIQUE: Contiguous noncontrast images were obtained from the skull base through the vertex. After intravenous contrast administration, helical CT angiography of the neck was performed. Source data was reformatted into multiple MIP projections. Delayed post contrast acquisition was also obtained. INDICATION: Dizziness, nausea, presyncopal. FINDINGS: The cervical vertebral arteries patent and codominant. Bilateral common carotids widely patent. Carotid bulbs, bifurcations and cervical internal carotids unremarkable. The major external carotid branches were unremarkable. No substantial plaque burden, dissection or other suspicious intimal irregularity. CT angio head: When correlated with earlier MRI, the delayed postcontrast enhanced head CT showed no evidence for interval change. There were no findings of focal nor generalized cerebral edema. No mass or mass effect is apparent. Old area of encephalomalacia in the left cerebellar hemisphere chronic. There is normal enhancement of the major dural venous sinuses. The intrathecal vertebral arteries unremarkable. The basilar is patent, however somewhat small without intraluminal thrombus or focal stenosis. There is prominent bilateral P-com with origin of both widely patent mouse breeder bilaterally. There is mild non-stenosing eccentric calcified plaque at the cavernous segments of the carotids. The A1 segments, the A-com and the paired anterior cerebrals are unremarkable. The bilateral middle cerebral arterial segments revealed no intraluminal thrombus or large vessel occlusion. Some scattered plaques in the M1 and M2 segments without hemodynamically significant degrees of focal stenosis. No aneurysm branch occlusion or vascular malformation. IMPRESSION: CT angio neck: Unremarkable CT angio neck CT angiogram head: Old area of left cerebellar hemispheric encephalomalacia with no acute intracerebral pathology. No large vessel occlusion, thrombus or hemodynamically significant stenosis and no vascular malformation or aneurysm identified. Dictated by: Dictated on workstation # [id number]
[2018-02-02 17:39] VITALS: BP 135/74
== END 2018-02-02 17:45 | disposition home or self-care (01) ==
LOC: EDUNIT# 14:35 → ER 14:38
DX: I63.9 Cerebral infarction, unspecified (principal); R11.0 Nausea; L29.9 Pruritus, unspecified; E78.00 Pure hypercholesterolemia, unspecified; I10 Essential (primary) hypertension; E03.9 Hypothyroidism, unspecified; E11.9 Type 2 diabetes mellitus without complications; F41.9 Anxiety disorder, unspecified; F32.9 Major depressive disorder, single episode, unspecified; K21.9 Gastro-esophageal reflux disease without esophagitis; Z86.010 Personal history of colon polyps; Z79.82 Long term (current) use of aspirin; Z80.42 Family history of malignant neoplasm of prostate; Z82.49 Family history of ischemic heart disease and other diseases of the circulatory system; Z79.84 Long term (current) use of oral hypoglycemic drugs; Z90.89 Acquired absence of other organs
CPT/HCPCS: 36415; 70496; 70498; 70551; 80053; 81000; 85025; 96361; 96374; 96375

== ENCOUNTER 2018-02-10 15:30 | Emergency (ER) | payer MEDICARE ==
[~2018-02-10] VITALS: Ht 160 cm; Wt 63.5 kg
--- NOTE | 2018-02-10 15:50 | ED Neurological Problem ---
General Chief Complaint: Neuro-Stroke Like Symptoms Stated Complaint: DIZZY, FEELING LIKE MOUTH DROOLING, SLURING WORDS Nursing Triage Note: ARRIVED VIA AMB TO ROOM 06. COMPLAINS OF HEADACHE AND DIZZINESS FOR 3-4 DAYS. SON STATES SHE WOKE UP THIS AM WITH SLURRED SPEECH AND DROOLING WHICH HAS RESOLVED. Nursing Sepsis Screen: No Definite Risk Source: patient, family Exam Limitations: no limitations History of Present Illness Date Seen by Provider: Feb 10, 2018 Time Seen by Provider: 15:47 Initial Comments This 67-year-old white female presents with a history of headache and dizziness for the last 3-4 days. The patient's son noted slurred speech and drooling this morning which has resolved. The patient was evaluated in the emergency department approximately a week ago with similar symptoms. Workup at that time demonstrated an old cerebellar stroke but no acute process. Patient denies associated fever, chills, visual disturbance, difficulty swallowing, nausea, vomiting, diarrhea, dysuria, or other lateralizing or localizing neurologic complaints Allergies and Home Medications Allergies Coded Allergies: No Known Drug Allergies (Verified , 09/24/17) Home Medications Ascorbic Acid 500 Mg Capsule, 500 MG PO DAILY, (Reported) Aspirin 81 Mg Tab.chew, 81 MG PO DAILY, (Reported) Atorvastatin Calcium 20 Mg Tablet, 20 MG PO DAILY, (Reported) Calcium Carbonate 500 Mg Tablet, 500 MG PO DAILY, (Reported) Cholecalciferol (Vitamin D3) 2,000 Unit Capsule, 2,000 UNIT PO DAILY, (Reported) Fluticasone Propionate 9.9 Ml [place].susp, 1 SPRAY NS BID, (Reported) 1 SPRAY EACH NARE DAILY Lactobacillus Combo No.11 1 Each Cap.sprink, 2 EACH PO BID Prescribed by: LYSSA DRUMMOND on 09/20/17 040 Levothyroxine Sodium 75 Mcg Tablet, 75 MCG PO DAILY, (Reported) Metformin HCl 500 Mg Tablet, 500 MG PO BID, (Reported) Multivitamin 1 Each Tablet, 1 EACH PO DAILY, (Reported) [place] 3 Polyunsat Fatty Acids 1,000 Mg Cap, 1,000 MG PO DAILY, (Reported) Ranitidine HCl 150 Mg Tablet, 150 MG PO BID, (Reported) Patient Home Medication List Home Medication List Reviewed: Yes Review of Systems Review of Systems Constitutional: No chills, No fever Eyes: Denies Blindness, Denies Blurred Vision Ears, Nose, Mouth, Throat: denies ear pain Respiratory: No cough Cardiovascular: No chest pain Gastrointestinal: No abdominal pain, No diarrhea, No vomiting Genitourinary: No dysuria : No Musculoskeletal: No back pain, No joint pain Skin: No change in color, No rash Psychiatric/Neurological: No Symptoms Reported Hematologic/Lymphatic: No Symptoms Reported Past Iuioszx-Jtvgac-Swhqrf Hx Past Med/Social Hx: Reviewed Nursing Past Med/Soc Hx Patient Social History Recent Foreign Travel: No Contact w/Someone Who Travel: No Recent Infectious Disease Expo: No Recent Hopitalizations: No Immunizations Up To Date Tetanus Booster (TDap): Unknown Date of Pneumonia Vaccine: Mar 05, 2015 Date of Influenza Vaccine: Mar 05, 2017 Seasonal Allergies Seasonal Allergies: Yes (MILD) Past Medical History Surgeries: Yes Gallbladder, Tonsillectomy Respiratory: No Cardiac: Yes High Cholesterol, Hypertension Neurological: Yes Stroke Reproductive Disorders: No Sexually Transmitted Disease: No HIV/AIDS: No Genitourinary: No Gastrointestinal: Yes (WT LOSS) Gastroesophageal Reflux, Polyps Musculoskeletal: No Arthritis Endocrine: Yes (DM, THYROID DZ- TAKES METFORMIN AND LEVOTHYROXINE) Hypothyroidsim, Diabetes, Non-Insulin dep HEENT: No Loss of Vision: Bilateral Hearing Impairment: Denies Cancer: No Psychosocial: Yes Anxiety, Depression Integumentary: No Blood Disorders: No Adverse Reaction/Blood Tranf: No (N/A) Family Medical History Prostate cancer 19 FATHER Respiratory disorder 19 MOTHER ( pnuemonia at age 85) CAD Over 55 Years Old, Hypertension Physical Exam Vital Signs Vital Signs - First Documented 02/10/18 15:30 Temp 98.0 Pulse 85 Resp 16 B/P (MAP) 136/77 (96) Pulse Ox 96 O2 Delivery Room Air Capillary Refill : Less Than 3 Seconds Height, Weight, BMI Height: 5'3.00" Weight: 140lbs. 8.0oz. [id number]; 29.4 BMI Method:Stated General Appearance: WD/WN, no apparent distress HEENT: normal ENT inspection Neck: normal inspection Respiratory: lungs clear Cardiovascular: regular rate, rhythm Gastrointestinal: normal bowel sounds, non tender, soft Back: normal inspection Neurologic/Psychiatric: no motor/sensory deficits, alert, oriented x 3 Crainal Nerves: normal hearing, normal speech, PERRL Motor/Sensory: no motor deficit, no sensory deficit, no pronator drift Stroke Onset of Symptoms Date of Onset of Symptoms: Feb 07, 2018 Time of Symptom Onset: 16:56 Onset of Symptoms: Yes NIH Stroke Scale Assessment Select: Initial Level of Consciousness: 0=Alert (0), Level of Consciousness- Questions: 0=Answers both month/age (0), LOC Commands: 0=Performs both tasks (0) , Gaze: Normal (0), Visual Lopez: 0=No visual loss (0), Facial Movement ( Facial Paresis): 0=Normal symmetrical mnt (0), Motor Function-Arms Right: 0=No drift (0), Motor Function-Arms Left: 0=No drift (0), Motor Function-Legs Right: 0=No drift (0), Motor Function-Legs Left: 0=No drift (0), Limb Ataxia: 0=Absent (0), Sensory: 0=Normal:no loss (0), Best Language: 0=No aphasia (0), Dysarthria : 0=Normal (0), Extinction & Inattention: 0=No abnormality (0), Total: 0 IV - TPa Received IV - TPa Procedure Performed?: No Progress/Results/Core Measures Results/Orders Lab Results Laboratory Tests Test 02/10/18 15:48 02/10/18 16:24 Range/Units White Blood Count 8.1 4.3-11.0 10^3/uL Red Blood Count 4.79 4.35-5.85 10^6/uL Hemoglobin 14.6 11.5-16.0 G/DL Hematocrit 42 35-52 % Mean Corpuscular Volume 87 80-99 FL Mean Corpuscular Hemoglobin 31 25-34 PG Mean Corpuscular Hemoglobin Concent 35 32-36 G/DL Red Cell Distribution Width 14.2 10.0-14.5 % Platelet Count 260 130-400 10^3/uL Mean Platelet Volume 9.5 7.4-10.4 FL Neutrophils (%) (Auto) 66 42-75 % Lymphocytes (%) (Auto) 29 12-44 % Monocytes (%) (Auto) 4 0-12 % Eosinophils (%) (Auto) 2 0-10 % Basophils (%) (Auto) 0 0-10 % Neutrophils # (Auto) 5.3 1.8-7.8 X 10^3 Lymphocytes # (Auto) 2.3 1.0-4.0 X 10^3 Monocytes # (Auto) 0.3 0.0-1.0 X 10^3 Eosinophils # (Auto) 0.2 0.0-0.3 10^3/uL Basophils # (Auto) 0.0 0.0-0.1 10^3/uL Prothrombin Time 12.9 12.2-14.7 SEC INR Comment 1.0 0.8-1.4 Activated Partial Thromboplast Time 31 24-35 SEC D-Dimer 0.40 0.00-0.49 UG/ML Sodium Level 139 135-145 MMOL/L Potassium Level 3.7 3.6-5.0 MMOL/L Chloride Level 106 98-107 MMOL/L Carbon Dioxide Level 23 21-32 MMOL/L Anion Gap 10 5-14 MMOL/L Blood Urea Nitrogen 13 7-18 MG/DL Creatinine 0.97 0.60-1.30 MG/DL Estimat Glomerular Filtration Rate 57 BUN/Creatinine Ratio 13 Glucose Level 129 H 70-105 MG/DL Glucometer 122 H 70-110 MG/DL Calcium Level 9.9 8.5-10.1 MG/DL Corrected Calcium 9.7 8.5-10.1 MG/DL Total Bilirubin 0.8 0.1-1.0 MG/DL Aspartate Amino Transf (AST/SGOT) 15 5-34 U/L Alanine Aminotransferase (ALT/SGPT) 13 0-55 U/L Alkaline Phosphatase 54 40-136 U/L Troponin I < 0.30 <0.30 NG/ML Total Protein 6.8 6.4-8.2 GM/DL Albumin 4.3 3.2-4.5 GM/DL Vital Signs/I&O 02/10/18 15:30 Temp 98.0 Pulse 85 Resp 16 B/P (MAP) 136/77 (96) Pulse Ox 96 O2 Delivery Room Air Blood Pressure Mean: 96 Progress Progress Note : Time: 16:57 Progress Note The patient had an unremarkable CT of the head. The patient's NIH was 0. The remainder of the patient's evaluation failed to demonstrate evidence of acute pathology. I explained findings to the patient and her son. They were relieved. They will follow-up with their primary care physician early this week. I invited them to return to the emergency department if any further problems or questions Departure Impression Primary Impression: Transient cerebral ischemia Qualified Codes: G45.9 - Transient cerebral ischemic attack, unspecified Disposition: HOME, SELF-CARE Condition: Improved Departure-Patient Inst. Decision time for Depature: 16:59 Referrals: [facility] (PCP/Family) Primary Care Physician Patient Instructions: Transient Ischemic Attack (DC) Add. Discharge Instructions: Close follow-up at [facility] with your doctor. Return if any problems or questions. All discharge instructions reviewed with patient and/or family. Voiced understanding. SERINA VERA MD Feb 10, 2018 15:50
[2018-02-10 16:00] LABS: BASOPHILS % (AUTO) 0 % (0-10); EOSINOPHILS # (AUTO) 0.2 10^3/uL (0.0-0.3); EOSINOPHILS % (AUTO) 2 % (0-10); HEMATOCRIT 42 % (35-52); HEMOGLOBIN 14.6 G/DL (11.5-16.0); LYMPHOCYTES # (AUTO) 2.3 X 10^3 (1.0-4.0); LYMPHOCYTES % (AUTO) 29 % (12-44); MEAN CORPUSCULAR HEMOGLOBIN 31 PG (25-34); MEAN CORPUSCULAR HGB CONC 35 G/DL (32-36); MEAN CORPUSCULAR VOLUME 87 FL (80-99); MEAN PLATELET VOLUME 9.5 FL (7.4-10.4); MONOCYTES # (AUTO) 0.3 X 10^3 (0.0-1.0); MONOCYTES % (AUTO) 4 % (0-12); NEUTROPHILS # (AUTO) 5.3 X 10^3 (1.8-7.8); NEUTROPHILS % (AUTO) 66 % (42-75); PLATELET COUNT 260 10^3/uL (130-400); RED BLOOD COUNT 4.79 10^6/uL (4.35-5.85); RED CELL DISTRIBUTION WIDTH 14.2 % (10.0-14.5); WHITE BLOOD COUNT 8.1 10^3/uL (4.3-11.0)
[2018-02-10 16:15] LABS: FIBRIN DEGRADATION PRODUCTS 0.4 UG/ML (0.00-0.49); PROTHROMBIN TIME PATIENT 12.9 SEC (12.2-14.7)
[2018-02-10 16:18] LABS: ALANINE AMINOTRANSFERASE 13 U/L (0-55); ALBUMIN 4.3 GM/DL (3.2-4.5); ALKALINE PHOSPHATASE 54 U/L (40-136); BILIRUBIN,TOTAL 0.8 MG/DL (0.1-1.0); BUN/CREATININE RATIO 13; CALCIUM 9.9 MG/DL (8.5-10.1); CARBON DIOXIDE 23 MMOL/L (21-32); CHLORIDE 106 MMOL/L (98-107); CREATININE SERUM 0.97 MG/DL (0.60-1.30); GFR ESTIMATED 57; GLUCOSE 129 MG/DL (70-105); POTASSIUM 3.7 MMOL/L (3.6-5.0); SODIUM 139 MMOL/L (135-145); TOTAL PROTEIN 6.8 GM/DL (6.4-8.2)
--- NOTE | 2018-02-10 16:24 | Diagnostic Imaging Report ---
INDICATION: Headache and dizziness for four days. Slurred speech and drooling. EXAMINATION: CT head, rule out stroke. FINDINGS: The ventricles are normal in size, shape and position. There is no acute parenchymal hemorrhage, edema or mass. There is no extra-axial mass or hemorrhage. IMPRESSION: No acute abnormality is seen with no change from 02/02/2018. Dictated by: Dictated on workstation # [id number]
--- NOTE | 2018-02-10 16:27 | Diagnostic Imaging Report ---
INDICATION: Headache and dizziness for four days. Slurred speech. EXAMINATION: Upright chest was obtained. FINDINGS: Normal heart size and vascularity. The lungs are clear. There is no effusion or pneumothorax. There is no bony abnormality. IMPRESSION: Normal chest. There is no change from 09/06/2014. Dictated by: Dictated on workstation # [id number]
[2018-02-10 16:51] LABS: BILIRUBIN,URINE NEGATIVE (NEGATIVE); CLARITY,URINE CLEAR; COLOR,URINE YELLOW; GLUCOSE, URINE (UA) NEGATIVE (NEGATIVE); KETONES,URINE NEGATIVE (NEGATIVE); LEUKOCYTE ESTERASE ,URINE 1+ (NEGATIVE); NITRITE,URINE NEGATIVE (NEGATIVE); PH,URINE 6 (5-9); PROTEIN,URINE NEGATIVE (NEGATIVE); UROBILINOGEN,URINE NORMAL (NORMAL)
[2018-02-10 17:11] VITALS: BP 119/67
[2018-02-10 17:29] LABS: BACTERIA,URINE NEGATIVE /HPF; HYALINE CASTS, URINE 0-2 /LPF; RBC,URINE RARE /HPF; SQUAMOUS EPITHELIAL CELL,UR 0-2 /HPF; WBC,URINE 0-2 /HPF
== END 2018-02-10 17:11 | disposition home or self-care (01) ==
LOC: EDUNIT# 15:30 → ER 15:33
DX: G45.9 Transient cerebral ischemic attack, unspecified (principal); E78.00 Pure hypercholesterolemia, unspecified; I10 Essential (primary) hypertension; K21.9 Gastro-esophageal reflux disease without esophagitis; E03.9 Hypothyroidism, unspecified; E11.9 Type 2 diabetes mellitus without complications; F41.9 Anxiety disorder, unspecified; F32.9 Major depressive disorder, single episode, unspecified; Z86.010 Personal history of colon polyps; Z80.42 Family history of malignant neoplasm of prostate; Z79.82 Long term (current) use of aspirin; Z79.84 Long term (current) use of oral hypoglycemic drugs; Z79.51 Long term (current) use of inhaled steroids; Z90.89 Acquired absence of other organs
CPT/HCPCS: 36415; 70450; 71045; 80053; 81000; 82962; 84484; 85025; 85379; 85610; 85730; 93005; 93041

== ENCOUNTER → 2018-02-26 | Outpatient (CLI) | payer MEDICARE ==
--- NOTE | 2018-02-26 12:53 | Diagnostic Imaging Report ---
PROCEDURE: US carotid duplex, bilateral. TECHNIQUE: Multiple real-time grayscale images were obtained over the carotid arteries in various projections, bilaterally. Additional duplex Doppler and color Doppler images were also obtained. INDICATION: TIA. There are no prior studies available for comparison. There is mild hard and soft plaque formation in both carotid systems. The flow velocities failed to show any sign of a hemodynamically significant stenosis of the common or internal carotid arteries. Both vertebral arteries were noted and there was antegrade flow bilaterally. IMPRESSION: There is mild atherosclerotic disease involving both carotid systems but there is no evidence for hemodynamically significant stenosis of the common or internal carotid arteries. Parameters based on the consensus panel Romero-Scale and Doppler ultrasound criteria published March 2003, Radiology, Volume 229. DOPPLER (peak systolic velocity M/S Right Left CCA .56 .74 ICA Proximal .47 .54 ICA Mid .47 .70 ICA Distal .45 .88 RATIO .85 1.18 ECA .55 .43 VERT .46 .36 Dictated by: Dictated on workstation # [id number]
== END ==
LOC: RAD 11:12
PROVIDERS: ATTEND Internal Medicine
DX: I65.23 Occlusion and stenosis of bilateral carotid arteries (principal)
CPT/HCPCS: 93880

== ENCOUNTER → 2018-04-30 | Outpatient (CLI) | payer MEDICARE ==
--- NOTE | 2018-04-30 18:07 | Diagnostic Imaging Report ---
EXAMINATION: Digital Mammogram bilateral screening with 3D tomosynthesis and computer-aided detection (CAD) system. INDICATION: Screening. There are no prior studies available for comparison. At this time, there are no current complaints. FINDINGS: There are scattered fibroglandular densities in both breasts which could obscure a lesion. There is an asymmetric 2.0 x 2.4 cm area of increased density in the 2 o'clock position of the left retroareolar region. The tomographic views fail to show any definite mass in this area, and I suspect that this finding is related to fibroglandular tissue alone. However, as there are no previous exams available for comparison, I would recommend that ultrasound of this area be performed for further study. There is no primary or secondary sign of malignancy noted otherwise. IMPRESSION: Ultrasound would be recommended for further evaluation of the asymmetric density in the retroareolar region of the left breast. ACR BI-RADS Category 0: Incomplete. (Needs additional imaging evaluation). Result letter will be mailed to the patient. Note: At least 10% of breast cancer is not imaged by mammography. Dictated by: Dictated on workstation # [id number]
== END ==
LOC: RAD 11:07
PROVIDERS: ATTEND Nurse Practitioner Primary Care
DX: Z12.31 Encounter for screening mammogram for malignant neoplasm of breast (principal)
CPT/HCPCS: 77067

== ENCOUNTER → 2018-05-22 | Outpatient (CLI) | payer MEDICARE ==
--- NOTE | 2018-05-22 18:27 | Diagnostic Imaging Report ---
INDICATION: Abnormal mammogram. EXAMINATION: Ultrasound of the left breast, limited. FINDINGS: The screening mammogram performed on 04/30/2018 noted a 2.0 x 2.4 cm area of increased density in the 2 o'clock position of the left retroareolar region. This finding was felt to be most likely due to fibroglandular tissue. However, as there are no prior exams available for comparison, ultrasound was recommended for a more sensitive evaluation of this area. On this exam, the evaluation of the retroareolar region shows no discrete solid or cystic mass. I do suspect that the asymmetric density in the retroareolar region is related to fibroglandular tissue alone. Even so, as there are no prior studies available for comparison, a short-term (six month) followup mammogram should be obtained for continued evaluation. IMPRESSION: There is no evidence for malignancy. Recommendations as above. ACR BI-RADS Category 3: Probably benign findings. Result letter will be mailed to the patient. Note: At least 10% of breast cancer is not imaged by mammography. Dictated by: Dictated on workstation # [id number]
== END ==
LOC: RAD 13:51
PROVIDERS: ATTEND Nurse Practitioner Primary Care
DX: R92.8 Other abnormal and inconclusive findings on diagnostic imaging of breast (principal)
CPT/HCPCS: 76642

== ENCOUNTER → 2019-01-03 | Outpatient (CLI) | payer MEDICARE ==
--- NOTE | 2019-01-03 19:19 | Diagnostic Imaging Report ---
INDICATION: Six-month followup left breast asymmetry. COMPARISON: Correlation is made with prior mammogram from 04/30/2018. TECHNIQUE: Unilateral left 2-D and 3-D diagnostic mammography was performed. The current study was also evaluated with a Computer Aided Detection (CAD) system. 3-D tomosynthesis was also performed and reviewed. FINDINGS: Scattered fibroglandular densities are noted. Asymmetric density retroareolar left breast is stable and most consistent with fibroglandular tissue. No mass or malignant-appearing microcalcifications are seen. Left axilla is unremarkable. IMPRESSION: Stable left mammogram. No mammographic features suspicious for malignancy are identified. Patient should return in six months for bilateral screening mammography. ACR BI-RADS Category 2: Benign findings. Result letter will be mailed to the patient. Note: At least 10% of breast cancer is not imaged by mammography. Dictated by: Dictated on workstation # [id number]
== END ==
LOC: RAD 12:54
PROVIDERS: ATTEND Nurse Practitioner Primary Care
DX: N64.89 Other specified disorders of breast (principal); R92.8 Other abnormal and inconclusive findings on diagnostic imaging of breast

== ENCOUNTER 2019-02-11 13:17 | Emergency (ER) | payer MEDICARE ==
[~2019-02-11] VITALS: Ht 157.4 cm; Wt 82.0 kg
--- NOTE | 2019-02-11 14:04 | ED General ---
General Chief Complaint: General Problems/Pain Stated Complaint: TROUBLE HEARING Nursing Triage Note: Pt reports bilateral hearing difficulty x3 days. Nursing Sepsis Screen: No Definite Risk Source of Information: Patient Exam Limitations: No Limitations History of Present Illness Date Seen by Provider: Feb 11, 2019 Time Seen by Provider: 14:02 Initial Comments To ER with reports of difficulty hearing regarding both ears for about 3 days. She has no nasal congestion or rhinorrhea. She was seen at [facility] but they were unable to find a cause for this so she came to the emergency room. She has no other symptoms. Timing/Duration: 2-3 Days Severity: Moderate Associated Systoms: Denies Symptoms Allergies and Home Medications Allergies Coded Allergies: No Known Drug Allergies (Verified , 09/24/17) Home Medications Ascorbic Acid 500 Mg Capsule, 500 MG PO DAILY, (Reported) Aspirin 81 Mg Tab.chew, 81 MG PO DAILY, (Reported) Atorvastatin Calcium 20 Mg Tablet, 20 MG PO DAILY, (Reported) Calcium Carbonate 500 Mg Tablet, 500 MG PO DAILY, (Reported) Cholecalciferol (Vitamin D3) 2,000 Unit Capsule, 2,000 UNIT PO DAILY, (Reported) Fluticasone Propionate 9.9 Ml [place].susp, 1 SPRAY NS BID, (Reported) 1 SPRAY EACH NARE DAILY Lactobacillus Combo No.11 1 Each Cap.sprink, 2 EACH PO BID Prescribed by: LYSSA DRUMMOND on 09/20/171855 Levothyroxine Sodium 75 Mcg Tablet, 75 MCG PO DAILY, (Reported) Metformin HCl 500 Mg Tablet, 500 MG PO BID, (Reported) Multivitamin 1 Each Tablet, 1 EACH PO DAILY, (Reported) [place] 3 Polyunsat Fatty Acids 1,000 Mg Cap, 1,000 MG PO DAILY, (Reported) Ranitidine HCl 150 Mg Tablet, 150 MG PO BID, (Reported) Patient Home Medication List Home Medication List Reviewed: Yes Review of Systems Review of Systems Constitutional: see HPI EENTM: see HPI Respiratory: no symptoms reported Cardiovascular: no symptoms reported Genitourinary: no symptoms reported Musculoskeletal: no symptoms reported Skin: no symptoms reported Psychiatric/Neurological: No Symptoms Reported Past Kkyzsml-Ljrxou-Euwucw Hx Patient Social History Alcohol Use: Denies Use Recreational Drug Use: No Smoking Status: Never a Smoker Recent Foreign Travel: No Contact w/Someone Who Travel: No Recent Infectious Disease Expo: No Recent Hopitalizations: No Immunizations Up To Date Tetanus Booster (TDap): Unknown Date of Pneumonia Vaccine: Jan 20, 2019 Date of Influenza Vaccine: Jan 20, 2019 Seasonal Allergies Seasonal Allergies: No Past Medical History Surgeries: Yes Gallbladder, Tonsillectomy Respiratory: No Cardiac: Yes High Cholesterol, Hypertension Neurological: Yes Stroke Reproductive Disorders: No Sexually Transmitted Disease: No HIV/AIDS: No Genitourinary: No Gastrointestinal: Yes (WT LOSS) Gastroesophageal Reflux, Polyps Musculoskeletal: Yes Arthritis Endocrine: Yes Hypothyroidsim HEENT: No Loss of Vision: Bilateral Hearing Impairment: Denies Cancer: No Psychosocial: Yes Anxiety, Depression Integumentary: No Blood Disorders: No Adverse Reaction/Blood Tranf: No (N/A) Family Medical History Prostate cancer 19 FATHER Respiratory disorder 19 MOTHER ( pnuemonia at age 85) CAD Over 55 Years Old, Hypertension Physical Exam Vital Signs Vital Signs - First Documented 02/11/19 13:21 Temp 36.8 Pulse 101 Resp 14 B/P (MAP) 144/85 (104) Pulse Ox 97 Capillary Refill : Less Than 3 Seconds Height, Weight, BMI Height: 5'3.00" Weight: 140lbs. 8.0oz. 63.347922jl; 33.00 BMI Method:Stated General Appearance: No Apparent Distress, WD/WN Eyes: Bilateral Eye Normal Inspection, Bilateral Eye PERRL HEENT: PERRL/EOMI, Other (cerumen impaction right ear, easily irrigated and r emoved fully. There is no serous otitis, tympanic membranes are normal in appearance.) Neck: Full Range of Motion, Normal Inspection Respiratory: No Accessory Muscle Use, No Respiratory Distress Extremity: Normal Capillary Refill, Normal Inspection Neurologic/Psychiatric: Alert, Oriented x3 Skin: Normal Color, Warm/Dry Progress/Results/Core Measures Suspected Sepsis Recent Fever Within 48 Hours: No Infection Criteria Present: None New/Unexplained Altered Menta: No Sepsis Screen: No Definite Risk SIRS Temperature: Pulse: 101 Respiratory Rate: 14 Blood Pressure 144 /85 Mean: 104 Results/Orders Vital Signs/I&O 02/11/19 13:21 Temp 36.8 Pulse 101 Resp 14 B/P (MAP) 144/85 (104) Pulse Ox 97 Capillary Refill : Less Than 3 Seconds Blood Pressure Mean: 104 Departure Communication (Admissions) She does report some improvement after removal of the cerumen impaction but not complete movement Impression Primary Impression: Hearing loss Qualified Codes: H91.93 - Unspecified hearing loss, bilateral Disposition: 01 HOME, SELF-CARE Condition: Stable Departure-Patient Inst. Decision time for Depature: 14:04 Referrals: [facility] (PCP) Primary Care Physician ANALILIA LEMUS APRN (Family) Primary Care Physician Patient Instructions: Hearing Loss in Adults Add. Discharge Instructions: 1. Follow-up with primary care next week if symptoms persist. All discharge instructions reviewed with patient and/or family. Voiced understanding. HUDSON KWAN APRN Feb 11, 2019 14:04
[2019-02-11 14:08] VITALS: BP 144/85
== END 2019-02-11 14:08 | disposition home or self-care (01) ==
LOC: EDUNIT# 13:17 → ER 13:18
DX: H91.93 Unspecified hearing loss, bilateral (principal); I10 Essential (primary) hypertension; E78.00 Pure hypercholesterolemia, unspecified; F41.9 Anxiety disorder, unspecified; F32.9 Major depressive disorder, single episode, unspecified; K21.9 Gastro-esophageal reflux disease without esophagitis; E03.9 Hypothyroidism, unspecified; Z86.73 Personal history of transient ischemic attack (TIA), and cerebral infarction without residual deficits; Z79.82 Long term (current) use of aspirin; Z79.51 Long term (current) use of inhaled steroids; Z79.84 Long term (current) use of oral hypoglycemic drugs; Z90.89 Acquired absence of other organs; Z82.49 Family history of ischemic heart disease and other diseases of the circulatory system
CPT/HCPCS: 99281

== ENCOUNTER 2020-03-26 15:29 | Emergency (ER) | payer MEDICARE ==
[~2020-03-26] VITALS: Ht 132 cm; Wt 90.7 kg
[~2020-03-26 15:29] MED LIST changes: -TRAM50TA2 PO; +TRM50T PO
--- NOTE | 2020-03-26 16:16 | ED Abdominal Pain ---
General Chief Complaint: Abdominal/GI Problems Stated Complaint: LUMP IN ABDOMEN Nursing Triage Note: PT ARRIVES TO ER WITH C/O LUMP IN ABDOMEN THAT SHE NOTICED ABOUT 1 WEEK AGO Sepsis Screen: No Definite Risk Source of Information: Patient Exam Limitations: No Limitations History of Present Illness Date Seen by Provider: Mar 26, 2020 Time Seen by Provider: 16:16 Initial Comments To ER with reports of a lump in the upper abdomen since earlier this week. History of Lap joshua Severity/Quality: Moderate Radiation: No Radiation Activities at Onset: None Associated Symptoms: Denies Symptoms Allergies and Home Medications Allergies Coded Allergies: No Known Drug Allergies (Verified , 09/24/17) Home Medications Ascorbic Acid 500 Mg Capsule, 500 MG PO DAILY, (Reported) Aspirin 81 Mg Tab.chew, 81 MG PO DAILY, (Reported) Atorvastatin Calcium 20 Mg Tablet, 20 MG PO DAILY, (Reported) Calcium Carbonate 500 Mg Tablet, 500 MG PO DAILY, (Reported) Cholecalciferol (Vitamin D3) 2,000 Unit Capsule, 2,000 UNIT PO DAILY, (Reported) Fluticasone Propionate 9.9 Ml Bardolph.susp, 1 SPRAY NS BID, (Reported) 1 SPRAY EACH NARE DAILY Lactobacillus Combo No.11 1 Each Cap.sprink, 2 EACH PO BID Prescribed by: LYSSA DRUMMOND on 09/20/171855 Levothyroxine Sodium 75 Mcg Tablet, 75 MCG PO DAILY, (Reported) Metformin HCl 500 Mg Tablet, 500 MG PO BID, (Reported) Multivitamin 1 Each Tablet, 1 EACH PO DAILY, (Reported) Aspen 3 Polyunsat Fatty Acids 1,000 Mg Cap, 1,000 MG PO DAILY, (Reported) Ranitidine HCl 150 Mg Tablet, 150 MG PO BID, (Reported) Patient Home Medication List Home Medication List Reviewed: Yes Review of Systems Review of Systems Constitutional: see HPI EENTM: No Symptoms Reported Respiratory: No Symptoms Reported Cardiovascular: No Symptoms Reported Gastrointestinal: No Symptoms Reported Genitourinary: No Symptoms Reported Musculoskeletal: no symptoms reported Skin: no symptoms reported Psychiatric/Neurological: No Symptoms Reported Endocrine: No Symptoms Reported Hematologic/Lymphatic: No Symptoms Reported Past Pgvoybb-Krtdhm-Mbmswy Hx Patient Social History Alcohol Use: Denies Use Recreational Drug Use: No 2nd Hand Smoke Exposure: No Recent Foreign Travel: No Contact w/Someone Who Travel: No Recent Infectious Disease Expo: No Recent Hopitalizations: No Immunizations Up To Date Tetanus Booster (TDap): Unknown Date of Pneumonia Vaccine: Jan 20, 2019 Date of Influenza Vaccine: Jan 20, 2019 Seasonal Allergies Seasonal Allergies: No Past Medical History Surgeries: Yes Gallbladder, Orthopedic, Tonsillectomy Respiratory: No Cardiac: Yes High Cholesterol, Hypertension Neurological: Yes Stroke Reproductive Disorders: No Sexually Transmitted Disease: No HIV/AIDS: No Genitourinary: No Gastrointestinal: Yes (WT LOSS) Gastroesophageal Reflux, Polyps Musculoskeletal: Yes Arthritis Endocrine: Yes Hypothyroidsim, Diabetes, Non-Insulin dep HEENT: No Loss of Vision: Bilateral Hearing Impairment: Denies Cancer: No Psychosocial: Yes Anxiety, Depression Integumentary: No Blood Disorders: No Adverse Reaction/Blood Tranf: No (N/A) Family Medical History Prostate cancer 19 FATHER Respiratory disorder 19 MOTHER ( pnuemonia at age 85) CAD Over 55 Years Old, Hypertension Physical Exam Vital Signs Vital Signs - First Documented 03/26/20 15:48 Temp 36.9 Pulse 74 Resp 18 B/P (MAP) 146/104 (118) Pulse Ox 96 O2 Delivery Room Air Capillary Refill : Less Than 3 Seconds Height/Weight/BMI Height: 5'3.00" Weight: 140lbs. 8.0oz. 63.154285kx; 52.00 BMI Method:Stated General Appearance: WD/WN, no apparent distress Respiratory: no respiratory distress, no accessory muscle use Gastrointestinal: normal bowel sounds, soft, other (There is a slightly tender palpable mass in the epigastric region. Unable to reduce this.) Extremities: normal range of motion, non-tender Neurologic/Psychiatric: alert, normal mood/affect, oriented x 3 Skin: normal color, warm/dry Progress/Results/Core Measures Results/Orders My Orders Orders - HUDSON KWAN APRN Ct Abdomen/Pelvis Wo (03/26/20 15:57) Vital Signs/I&O 03/26/20 15:48 Temp 36.9 Pulse 74 Resp 18 B/P (MAP) 146/104 (118) Pulse Ox 96 O2 Delivery Room Air Blood Pressure Mean: 118 Departure Impression Primary Impression: Ventral hernia Qualified Codes: K43.9 - Ventral hernia without obstruction or gangrene Disposition: 01 HOME, SELF-CARE Condition: Stable Departure-Patient Inst. Decision time for Depature: 16:34 Referrals: [facility]/ (PCP) Primary Care Physician ANALILIA LEMUS APRN (Family) Primary Care Physician NAUN JHA BRETT D DO KIDO, TAKAAKI MD Patient Instructions: Abdominal Hernia (DC) Add. Discharge Instructions: 1. Call one of the surgeons listed on Sunday to make an appointment to be seen return to ER for any concerns Copy Copies To 1: NAUN JHA PETER J APRN Mar 26, 2020 16:16
--- NOTE | 2020-03-26 16:27 | Diagnostic Imaging Report ---
PROCEDURE: CT abdomen and pelvis without contrast. TECHNIQUE: Multiple contiguous axial images were obtained through the abdomen and pelvis without the use of intravenous contrast. Auto Exposure Controls were utilized during the CT exam to meet ALARA standards for radiation dose reduction. INDICATION: Palpable tender bulge in the abdomen x1-2 weeks. FINDINGS: There is a left paramedian supraumbilical abdominal wall hernia. The hernial orifice with a diameter of 10 mm through the hernia is of extruded fat without evidence for its strangulation or edema and along the peripheral margin of the hernia sac is peritoneal fluid. More caudally, there is a noninflamed fat-containing umbilical hernia. The infraumbilical abdominal wall is intact. Liver density is consistent with mild steatosis. The gallbladder is surgically absent. There is no hydroureteronephrosis. Spleen, adrenals, and pancreas are nonacute. The aorta is nonaneurysmal. There is no appendicitis or diverticulitis. The uterus and adnexa are unremarkable. The urinary bladder was nearly empty. IMPRESSION: 1. Upper abdominal left paramedian ventral hernia comprised of fat as well as small-volume peritoneal fluid. No herniation of viscus. Hernial orifice is 10 mm in diameter. 2. Small fatty umbilical hernia. No other abdominal wall pathology. Fatty liver. No other significant finding. Dictated by: Dictated on workstation # [id number]
[2020-03-26 16:38] VITALS: BP 146/104
== END 2020-03-26 16:40 | disposition home or self-care (01) ==
LOC: EDUNIT# 15:29 → ER 15:30
DX: K43.9 Ventral hernia without obstruction or gangrene (principal); E11.9 Type 2 diabetes mellitus without complications; E03.9 Hypothyroidism, unspecified; E78.00 Pure hypercholesterolemia, unspecified; K21.9 Gastro-esophageal reflux disease without esophagitis; Z82.49 Family history of ischemic heart disease and other diseases of the circulatory system; Z80.42 Family history of malignant neoplasm of prostate; Z79.82 Long term (current) use of aspirin; Z79.84 Long term (current) use of oral hypoglycemic drugs; Z79.890 Hormone replacement therapy
CPT/HCPCS: 74176

== ENCOUNTER 2020-04-05 05:33 | Outpatient (RCR) | payer MEDICARE ==
[~2020-04-05] VITALS: Ht 157.5 cm; Wt 92.7 kg
[~2020-04-05 05:33] MED LIST changes: +AMLO-251 PO; +ATOR80TA76 PO; +LISI-552 PO; +MEMA10TA57 PO; +METF750T45 PO; +MV-M1TAB57 PO
== END 2020-04-05 05:40 | disposition home or self-care (01) ==
LOC: PREOP 05:33
PROVIDERS: ATTEND Surgery
DX: Z01.812 Encounter for preprocedural laboratory examination (principal); K43.2 Incisional hernia without obstruction or gangrene; Z20.828 Contact with and (suspected) exposure to other viral communicable diseases
CPT/HCPCS: 87635

== ENCOUNTER 2020-04-07 07:51 | Day surgery (SDC) | payer MEDICARE ==
[~2020-04-07] VITALS: Ht 157.5 cm; Wt 92.7 kg
[2020-04-07] VITALS (12 sets, daily range): BP systolic 139–185; BP diastolic 80–101
--- NOTE | 2020-04-07 08:15 | Progress Note-Pre Operative ---
Pre-Operative Progress Note H&P Reviewed The H&P was reviewed, patient examined and no changes noted. Time Seen by Provider: 08:11 Date H&P Reviewed: Apr 07, 2020 Time H&P Reviewed: 08:12 Pre-Operative Diagnosis: Incarcerated incisional hernia NAUN JHA DO Apr 07, 2020 08:15
[2020-04-07] MEDS ORDERED: ceFAZolin 2 GM IV Premixed 50 ML IV ONE (08:45)
[2020-04-07] MEDS: LACTATED RINGERS 1,000 ML IV PRN ×2 (09:07→10:25)
[2020-04-07] MEDS ORDERED: fentaNYL INJECTION 100 MCG/2 ML AMP ONE (09:39)
[2020-04-07] MEDS ORDERED: MIDAZOLAM 2 MG/2 ML (VERSED) VIAL ONE (09:39)
[2020-04-07] MEDS ORDERED: LIDOCAINE/EPI 1%-1:100,000 (XYLOCAINE) 20ML ONE (10:04)
[2020-04-07] MEDS ORDERED: SEVOFLURANE (ULTANE) 15 ML INHAL SOLN ONE (10:46)
[2020-04-07] MEDS ORDERED: NEOSTIGMINE 3 MG/3 ML VIAL ONE (10:46)
[2020-04-07] MEDS ORDERED: ROCURONIUM 10 MG/ML 5 ML SYRINGE IV ONE (10:46)
[2020-04-07] MEDS ORDERED: GLYCOPYRROLATE 0.2 MG/ML (ROBINUL) 2 ML VIAL ONE (10:46)
[2020-04-07] MEDS ORDERED: ONDANSETRON 4 MG/2 ML (SDV) Z0FRAN ONE (10:46)
[2020-04-07] MEDS ORDERED: proPOfol 200 MG/20 ML (DIPRIVAN) VIAL IV ONE (10:46)
[2020-04-07] MEDS ORDERED: LIDOCAINE PF 2% 5 ML (XYLOCAINE) VIAL ONE (10:46)
--- NOTE | 2020-04-07 10:59 | Progress Note-Post Operative ---
Post-Operative Progess Note Surgeon (s)/Wire Stitcher Machine (s) Surgeon NAUN JHA DO Wire Stitcher Machine: Silvio Pre-Operative Diagnosis Incarcerated incisional hernia, incarcerated umbilical hernia Post-Operative Diagnosis same Procedure & Operative Findings Date of Procedure 04/07/20 Procedure Performed/Findings PROCEDURE: Laparoscopic [Incisional] hernia repair with mesh Umbilical herniarraphy -open. COMPLICATIONS: None. INDICATIONS: The patient is a 70, female with an incarcerated incisional hernia and an incarcerated umbilical hernia. The incisional hernia has continued to increase in size and cause discomfort. The patient was explained the risk and benefits of the procedure and wished to proceed with the procedure. Consent was signed on the chart. DESCRIPTION OF PROCEDURE: The patient was taken into the operating suite, prepped and draped in sterile fashion. Surgical pause was performed. Local anesthetic was infiltrated under the umbilicus, because the incision hernia was too close to our usual site in the left upper quadrant. A #11 blade scalpel was used to make a small skin incision under the umbilicus. Blunt dissection was then used to dissect around the umbilical stalk and cautery was used to dissect down to the fascia and then went through the base of the stalk; exposing fat incarcerated in the umbilical hernia. The balloon trocar was inserted into the abdomen. The abdomen was then insufflated. A 5 mm trocar was placed in the right lower quadrant and a 5 mm trocar was placed in left lower quadrant. Had to take down the Falciform ligament with the Ligasure and then able to pull the fat out of the incisional hernia; fluid also came out. The defect was then closed using 0 Vicryl with a Jason-Lisha in a figure of eight fashion. Echo Ventralight mesh was then inserted in the abdomen grabbed through the stab incision. The balloon was inflated on the mesh. Circumferential tacks were placed with a SecureStrap Tacker. The balloon was then removed and inner crown was created as well. The mesh was tacked with pressure being decreased. The abdomen was then desufflated,the trocars were removed. The umbilical fascial defect was then closed using an 0 Vicryl in a pants over suit type closure. Then used the same stitch to suture down the umbilical stalk back to the fascia. The skin was then closed using 4-0 Monocryl in a running subcuticular fashion and simple interuppted stitches. The abdomen was washed and dried and Skin Affix was placed over the incisions. The patient tolerated procedure well without any complications. She was taken to recovery room in stable condition. Dr. Anguiano assisted on this case helping to make incisions, close incisions, identify anatomy and hold anatomy out of the way. Anesthesia Type GET Estimated Blood Loss Estimated blood loss (mL): minimal Specimens/Packing Specimens Removed hernia contents NAUN JAH DO Apr 07, 2020 10:59
[2020-04-07] MEDS ORDERED: HYDR-4226 PO (11:01)
--- NOTE | 2020-04-07 11:02 | Discharge Inst-Surgical ---
Discharge Inst-Surgical Depart Medication/Instructions New, Converted or Re-Newed RX: RX Given to Pt/Family Patient Instructions Follow up Appt: Make appointment for 1 week. [phone] Instructions: No lifting greater than 20 pounds. No strenuous activity. May shower in 24 hours, no tub bath or soaking. Use incentive spirometer at home as directed. No Smoking Skin/Wound Care: May remove bandages in am. You need to leave the Dermabond on incision it will fall off on it's own. Symptoms to Report: Appetite Changes, Extremity Discoloration, Numbness/Tingling, Swelling Increased, Bleeding Excessive, Eyesight Changes, Pain Increased, Urine Color Change, Constipation(Persistent), Fever over 101 degree F, Pain/Pressure in chest, Urinating Difficulty, Cough Up/Vomit Blood, Heart Beat Irreg/Pounding, Pain/Pressure in jaw, Cramps in feet or legs, Lightheadedness, Pain/Pressure in shoulder, Diarrhea(Persistent), Memory Changes Suddenly, Questions/Concerns, Weight gain consecutive days, Dizziness/Fainting, Nausea/Vomiting, Shortness of Breath, Weight gain over 2 pounds If questions or concerns contact your physician Or seek help at emergency department. Activity Activity as Tolerated: Yes Activity Instructions: Avoid Stress to Incision Driving Instructions: No Driving/Refer to Dr. Teran Discharge Diet: No Restrictions Diet After 24 Hours: Clear Liquid if Nauseous If Any Problems/Questions/Issu: Contact Your Physician, Go to Emergency Room Skin/Wound Care Infection Signs and Symptoms: Increased Redness, Foul Odor of Wound, Increased Drainage, Skin Itchy or Has a Rash, Increased Swelling, Temperature Above 101 F Wound Care Comment: heating pad to shoulder or neck tonight for pain Bathing Instructions: Shower Stitches/Naomi/Dermabond Dis: Dermabond Ice Pack: Ice On and Off Site NAUN JHA DO Apr 07, 2020 11:02
[2020-04-07] MEDS ORDERED: ONDANSETRON 4 MG/2 ML (SDV) Z0FRAN IVP PRN (12:00)
[2020-04-07] MEDS ORDERED: morphine INJ 10 MG/ML 1ML (SYR OR VIAL) IVP ONE (12:00)
[2020-04-07] MEDS ORDERED: HYDROmorphone 2 MG/ML VIAL (DILAUDID) IV ONE (12:00)
--- NOTE | 2020-04-07 12:42 | Anesthesia-General Post-Op ---
General Patient Condition Mental Status/LOC: Same as Preop Cardiovascular: Satisfactory Nausea/Vomiting: Absent Respiratory: Satisfactory Pain: Controlled Complications: Absent Post Op Complications Complications None Follow Up Care/Instructions Patient Instructions None needed. Anesthesia/Patient Condition Patient Condition Patient is doing well, no complaints, stable vital signs, no apparent adverse anesthesia problems. BRET CARDONA DO Apr 07, 2020 12:42
[2020-04-07] MEDS ORDERED: HYDROcodone/APAP 5 MG/325 MG (LORTAB) TAB ONE (14:14)
[2020-04-07] MEDS ORDERED: HYDROcodone/APAP 5 MG/325 MG (LORTAB) TAB PO ONE (14:15)
== END 2020-04-07 15:15 | disposition home or self-care (01) ==
LOC: SDC 07:51
PROVIDERS: ATTEND Surgery
DX: K43.0 Incisional hernia with obstruction, without gangrene (principal); K42.0 Umbilical hernia with obstruction, without gangrene; I10 Essential (primary) hypertension; F41.9 Anxiety disorder, unspecified; F32.9 Major depressive disorder, single episode, unspecified; K21.9 Gastro-esophageal reflux disease without esophagitis; E11.9 Type 2 diabetes mellitus without complications; E03.9 Hypothyroidism, unspecified; M19.90 Unspecified osteoarthritis, unspecified site; E66.9 Obesity, unspecified; Z68.37 Body mass index [BMI] 37.0-37.9, adult; Z79.84 Long term (current) use of oral hypoglycemic drugs; Z79.899 Other long term (current) drug therapy; Z86.73 Personal history of transient ischemic attack (TIA), and cerebral infarction without residual deficits; Z90.49 Acquired absence of other specified parts of digestive tract; Z80.9 Family history of malignant neoplasm, unspecified
CPT/HCPCS: 49587; 49655; 82962; 87081; C1781

== ENCOUNTER 2020-04-15 15:13 | Emergency (ER) | payer MEDICARE ==
[~2020-04-15] VITALS: Ht 157 cm; Wt 97.0 kg
[~2020-04-15 15:13] MED LIST changes: +HYDR-4226 PO
[2020-04-15 16:39] LABS: BILIRUBIN,URINE NEGATIVE (NEGATIVE); CLARITY,URINE CLEAR; COLOR,URINE YELLOW; GLUCOSE, URINE (UA) NEGATIVE (NEGATIVE); KETONES,URINE NEGATIVE (NEGATIVE); LEUKOCYTE ESTERASE ,URINE 1+ (NEGATIVE); NITRITE,URINE NEGATIVE (NEGATIVE); PROTEIN,URINE NEGATIVE (NEGATIVE)
[2020-04-15 16:40] LABS: BASOPHILS # (AUTO) 0.1 10^3/uL (0.0-0.1); BASOPHILS % (AUTO) 1 % (0-10); EOSINOPHILS # (AUTO) 0.3 10^3/uL (0.0-0.3); EOSINOPHILS % (AUTO) 3 % (0-10); HEMATOCRIT 47 % (35-52); HEMOGLOBIN 14.6 g/dL (11.5-16.0); LYMPHOCYTES # (AUTO) 1.8 10^3/uL (1.0-4.0); LYMPHOCYTES % (AUTO) 18 % (12-44); MEAN CORPUSCULAR HEMOGLOBIN 28 pg (25-34); MEAN CORPUSCULAR HGB CONC 31 g/dL (32-36); MEAN CORPUSCULAR VOLUME 89 fL (80-99); MEAN PLATELET VOLUME 10.5 fL (9.0-12.2); MONOCYTES # (AUTO) 0.6 10^3/uL (0.0-1.0); MONOCYTES % (AUTO) 7 % (0-12); NEUTROPHILS # (AUTO) 7.1 10^3/uL (1.8-7.8); NEUTROPHILS % (AUTO) 71 % (42-75); PLATELET COUNT 300 10^3/uL (130-400); WHITE BLOOD COUNT 9.9 10^3/uL (4.3-11.0)
[2020-04-15 16:42] LABS: ALBUMIN 4.2 GM/DL (3.2-4.5); POTASSIUM 4.5 MMOL/L (3.6-5.0)
[2020-04-15 16:43] LABS: CALCIUM 9.1 MG/DL (8.5-10.1)
[2020-04-15 16:44] LABS: TOTAL PROTEIN 7.5 GM/DL (6.4-8.2)
[2020-04-15 16:46] LABS: BILIRUBIN,TOTAL 0.7 MG/DL (0.1-1.0); INR 0.9 (0.8-1.4); PROTHROMBIN TIME PATIENT 12.3 SEC (12.2-14.7)
[2020-04-15 16:48] LABS: CREATININE SERUM 1.01 MG/DL (0.60-1.30)
--- NOTE | 2020-04-15 16:51 | Diagnostic Imaging Report ---
Indication: Cough and fever Portable chest 4:47 PM Heart size and pulmonary and pulmonary vascularity are normal. There is increased density in the perihilar region on the right. There are no peripheral infiltrates. There are no effusions or pneumothoraces. IMPRESSION: 3.4 cm right hilar opacity could be mass or infiltrate. It was not apparent on previous exam from 02/10/2018. Further evaluation with CT chest should be considered. Dictated by: Dictated on workstation # [id number]
[2020-04-15] MEDS ORDERED: LACTATED RINGERS 1,000 ML IV ONE ×2 (17:13)
[2020-04-15 17:16] LABS: BACTERIA,URINE TRACE /HPF
--- NOTE | 2020-04-15 17:31 | ED General ---
General Chief Complaint: Fever-Adult/Adol Stated Complaint: POST OP/FEVER/COUGH Nursing Triage Note: PT AMBULATED TO ROOM 9 CO OF HAVING FEVER AND COUGH STARTED TODAY. PT HAD HERNIA SURG ON 04/07 Nursing Sepsis Screen: No Definite Risk Source of Information: Patient Exam Limitations: No Limitations History of Present Illness Date Seen by Provider: Apr 15, 2020 Time Seen by Provider: 16:20 Initial Comments This 70-year-old woman presents to the emergency room with complaints of cough and elevated temperature on postoperative day #8 after incisional hernia repair by Dr. Jha. She denies any sore throat, headache, change in taste or smell, increased abdominal pain, chills, nausea, or diarrhea. She has had no known Covid exposures. Temperature has not exceeded 100 degrees. Allergies and Home Medications Allergies Coded Allergies: No Known Drug Allergies (Verified , 09/24/17) Home Medications Amlodipine Besylate 10 Mg Tablet, 10 MG PO DAILY, (Reported) Ascorbic Acid 500 Mg Capsule, 500 MG PO DAILY, (Reported) Aspirin 81 Mg Tab.chew, 81 MG PO DAILY, (Reported) Atorvastatin Calcium 80 Mg Tablet, 80 MG PO DAILY, (Reported) Cetirizine HCl 10 Mg Tablet, 10 MG PO DAILY, (Reported) Fluticasone Propionate 9.9 Ml [place].susp, 1 SPRAY NS BID, (Reported) 1 SPRAY EACH NARE DAILY Hydrocodone/Acetaminophen 1 Each Tablet, 1 TAB PO Q6H Prescribed by: NAUN JHA on 04/07/20 1101 Levothyroxine Sodium 75 Mcg Tablet, 75 MCG PO DAILY, (Reported) Lisinopril 20 Mg Tablet, 20 MG PO DAILY, (Reported) Memantine HCl 10 Mg Tablet, 10 MG PO BID, (Reported) Metformin HCl 750 Mg Tab.er.24h, 750 MG PO BID, (Reported) Mv-Mn/Folic Acid/Calcium/Vit K 1 Each Tablet, 1 EACH PO DAILY, (Reported) [place] 3 Polyunsat Fatty Acids 1,000 Mg Cap, 1,000 MG PO DAILY, (Reported) Sertraline HCl 50 Mg Tablet, 50 MG PO DAILY, (Reported) Patient Home Medication List Home Medication List Reviewed: Yes Review of Systems Review of Systems Constitutional: see HPI EENTM: no symptoms reported Respiratory: see HPI, cough Cardiovascular: no symptoms reported Gastrointestinal: see HPI Genitourinary: no symptoms reported : No Musculoskeletal: no symptoms reported Skin: no symptoms reported Psychiatric/Neurological: No Symptoms Reported Hematologic/Lymphatic: No Symptoms Reported Immunological/Allergic: no symptoms reported Past Pevgpgw-Hkkfwl-Ynjxyw Hx Past Med/Social Hx: Reviewed Nursing Past Med/Soc Hx Patient Social History Alcohol Use: Denies Use Recreational Drug Use: No Smoking Status: Never a Smoker 2nd Hand Smoke Exposure: No Recent Foreign Travel: No Contact w/Someone Who Travel: No Recent Infectious Disease Expo: No Recent Hopitalizations: No Physical Abuse: No Sexual Abuse: No Immunizations Up To Date Tetanus Booster (TDap): Unknown Date of Pneumonia Vaccine: Jan 20, 2019 Date of Influenza Vaccine: Jan 21, 2020 Seasonal Allergies Seasonal Allergies: No Past Medical History Surgeries: Yes (thumb sx, knee) Gallbladder, Orthopedic, Tonsillectomy Respiratory: No Cardiac: Yes High Cholesterol, Hypertension Neurological: Yes Stroke Reproductive Disorders: No Sexually Transmitted Disease: No HIV/AIDS: No Genitourinary: No Gastrointestinal: Yes Abdominal Hernia, Gastroesophageal Reflux, Polyps Musculoskeletal: Yes Arthritis Endocrine: Yes Hypothyroidsim, Diabetes, Non-Insulin dep HEENT: No Loss of Vision: Bilateral Hearing Impairment: Denies Cancer: No Psychosocial: Yes Anxiety, Depression Integumentary: No Blood Disorders: No Adverse Reaction/Blood Tranf: No (N/A) Family Medical History Prostate cancer 19 FATHER Respiratory disorder 19 MOTHER ( pnuemonia at age 85) CAD Over 55 Years Old, Hypertension Physical Exam Vital Signs Vital Signs - First Documented 04/15/20 15:25 Temp 37.1 Pulse 78 Resp 18 B/P (MAP) 175/89 (117) Pulse Ox 95 Capillary Refill : Less Than 3 Seconds Height, Weight, BMI Height: 5'3.00" Weight: 140lbs. 8.0oz. [id number]; 39.00 BMI Method:Stated General Appearance: No Apparent Distress, WD/WN HEENT: PERRL/EOMI, Normal ENT Inspection, Pharynx Normal Neck: Normal Inspection Respiratory: Lungs Clear, Normal Breath Sounds, No Accessory Muscle Use, No Respiratory Distress Cardiovascular: Regular Rate, Rhythm, No Edema, No Murmur Gastrointestinal: Normal Bowel Sounds, Soft, Tenderness (Mild tenderness in the epigastric region), Other (Well-healing incisions on the abdomen covered with glue) Extremity: Normal Inspection, No Pedal Edema Neurologic/Psychiatric: Alert, Oriented x3, No Motor/Sensory Deficits, Normal 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, 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 as 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 Skin: Normal Color, Warm/Dry Focused Exam Lactate Level 04/15/20 15:45: Lactic Acid Level 2.03*H Lactic Acid Level Laboratory Tests Test 04/15/20 15:45 Lactic Acid Level 2.03 MMOL/L (0.50-2.00) *H Progress/Results/Core Measures Suspected Sepsis Recent Fever Within 48 Hours: Yes Infection Criteria Present: Suspected New Infection New/Unexplained Altered Menta: No Sepsis Screen: No Definite Risk SIRS Temperature: Pulse: 78 Respiratory Rate: 18 Laboratory Tests 04/15/20 16:25: White Blood Count 9.9 Blood Pressure 175 /89 Mean: 117 04/15/20 15:45: Lactic Acid Level 2.03*H Laboratory Tests 04/15/20 16:25: Creatinine 1.01, INR Comment 0.9, Platelet Count 300, Total Bilirubin 0.7 Results/Orders Lab Results Laboratory Tests Test 04/15/20 15:30 04/15/20 15:45 04/15/20 16:25 Range/Units Coronavirus 2019 (JACQUES) Negative Negative Lactic Acid Level 2.03 *H 0.50-2.00 MMOL/L White Blood Count 9.9 4.3-11.0 10^3/uL Red Blood Count 5.25 H 3.80-5.11 10^6/uL Hemoglobin 14.6 11.5-16.0 g/dL Hematocrit 47 35-52 % Mean Corpuscular Volume 89 80-99 fL Mean Corpuscular Hemoglobin 28 25-34 pg Mean Corpuscular Hemoglobin Concent 31 L 32-36 g/dL Red Cell Distribution Width 14.6 H 10.0-14.5 % Platelet Count 300 130-400 10^3/uL Mean Platelet Volume 10.5 9.0-12.2 fL Immature Granulocyte % (Auto) 0 % Neutrophils (%) (Auto) 71 42-75 % Lymphocytes (%) (Auto) 18 12-44 % Monocytes (%) (Auto) 7 0-12 % Eosinophils (%) (Auto) 3 0-10 % Basophils (%) (Auto) 1 0-10 % Neutrophils # (Auto) 7.1 1.8-7.8 10^3/uL Lymphocytes # (Auto) 1.8 1.0-4.0 10^3/uL Monocytes # (Auto) 0.6 0.0-1.0 10^3/uL Eosinophils # (Auto) 0.3 0.0-0.3 10^3/uL Basophils # (Auto) 0.1 0.0-0.1 10^3/uL Immature Granulocyte # (Auto) 0.0 0.0-0.1 10^3/uL Prothrombin Time 12.3 12.2-14.7 SEC INR Comment 0.9 0.8-1.4 Activated Partial Thromboplast Time 20 L 24-35 SEC Urine Color YELLOW Urine Clarity CLEAR Urine pH 6.0 5-9 Urine Specific [place] 1.020 1.016-1.022 Urine Protein NEGATIVE NEGATIVE Urine Glucose (UA) NEGATIVE NEGATIVE Urine Ketones NEGATIVE NEGATIVE Urine Nitrite NEGATIVE NEGATIVE Urine Bilirubin NEGATIVE NEGATIVE Urine Urobilinogen 0.2 < = 1.0 MG/DL Urine Leukocyte Esterase 1+ H NEGATIVE Urine RBC (Auto) NEGATIVE NEGATIVE Urine RBC NONE /HPF Urine WBC 10-25 H /HPF Urine Squamous Epithelial Cells 2-5 /HPF Urine Crystals NONE /LPF Urine Bacteria TRACE /HPF Urine Casts NONE /LPF Urine Mucus NEGATIVE /LPF Urine Culture Indicated CULTURE PENDING Sodium Level 138 135-145 MMOL/L Potassium Level 4.5 3.6-5.0 MMOL/L Chloride Level 102 98-107 MMOL/L Carbon Dioxide Level 19 L 21-32 MMOL/L Anion Gap 17 H 5-14 MMOL/L Blood Urea Nitrogen 10 7-18 MG/DL Creatinine 1.01 0.60-1.30 MG/DL Estimat Glomerular Filtration Rate 54 BUN/Creatinine Ratio 10 Glucose Level 123 H 70-105 MG/DL Calcium Level 9.1 8.5-10.1 MG/DL Corrected Calcium 8.9 8.5-10.1 MG/DL Total Bilirubin 0.7 0.1-1.0 MG/DL Aspartate Amino Transf (AST/SGOT) 46 H 5-34 U/L Alanine Aminotransferase (ALT/SGPT) 29 0-55 U/L Alkaline Phosphatase 67 40-136 U/L Lactate Dehydrogenase 372 H 125-220 U/L C-Reactive Protein High Sensitivity 0.70 H 0.00-0.50 MG/DL Total Protein 7.5 6.4-8.2 GM/DL Albumin 4.2 3.2-4.5 GM/DL Micro Results Microbiology 04/15/20 Influenza Types A,B Antigen (JUSTIN) - Final, Complete My Orders Orders - BERTA SOUZA MD Cbc With Automated Diff (04/15/20 16:31) Comprehensive Metabolic Panel (04/15/20 16:31) Blood Culture (04/15/20 16:31) Sputum Culture (04/15/20 16:31) Urinalysis (04/15/20 16:31) Urine Culture (04/15/20 16:31) Protime With Inr (04/15/20 16:31) Partial Thromboplastin Time (04/15/20 16:31) Chest 1 View, Ap/Pa Only (04/15/20 16:31) Ed Iv/Invasive Line Start (04/15/20 16:31) Ed Iv/Invasive Line Start (04/15/20 16:31) Vital Signs Adult Sepsis Patie Q15M (04/15/20 16:31) O2 (04/15/20 16:31) Remove Rings In Anticipation O (04/15/20 16:31) Lactic Acid Analyzer (04/15/20 16:31) Influenza A And B Antigens (04/15/20 16:31) Hs C Reactive Protein (04/15/20 16:31) LDH (04/15/20 16:31) Covid 19 Inhouse Test (04/15/20 16:31) Ct Chest W (04/15/20 17:13) Lactated Ringers (Lr 1000 Ml Iv Solution (04/15/20 17:13) Lactated Ringers (Lr 1000 Ml Iv Solution (04/15/20 17:13) Iohexol Injection (Omnipaque 350 Mg/Ml 1 (04/15/20 17:45) Received Contrast (Hold Metformin- Contr (04/15/20 17:45) Ns (Ivpb) (Sodium Chloride 0.9% Ivpb Bag (04/15/20 17:45) Ceftriaxone For Iv Use (Rocephin For I (04/15/20 18:30) Medications Given in ED Current Medications Medications Dose Ordered Sig/Amy Route Start Time Stop Time Status Last Admin Dose Admin Iohexol 100 ml ONCE ONCE IV 04/15/20 17:45 04/15/20 17:46 DC 04/15/20 17:50 74 ML Lactated Ringer's 1,000 ml @ 0 mls/hr Q0M ONCE IV 04/15/20 17:13 04/15/20 17:16 DC 04/15/20 17:22 1,000 MLS/HR Sodium Chloride 100 ml ONCE ONCE IV 04/15/20 17:45 04/15/20 17:46 DC 04/15/20 17:50 80 ML Vital Signs/I&O 04/15/20 15:25 Temp 37.1 Pulse 78 Resp 18 B/P (MAP) 175/89 (117) Pulse Ox 95 Capillary Refill : Less Than 3 Seconds Blood Pressure Mean: 117 Progress Note #1: Time: : Progress Note Patient does not appear septic based on her labs and vital signs. Lactic acid was ever so slightly elevated. This likely represents hydration status. She is receiving a liter of LR. WBC and CRP were normal. Rapid Covid and influenza tests were negative. Chest x-ray revealed a fullness in the right hilar region. This could represent infection or mass. CT was recommended by the radiologist. Patient wishes to proceed with CT scan. Progress Note #2: Time: 18: Progress Note CT scan report was reviewed. The suspected mass relates to pulmonary vasculature. No pneumonia or solid masses appreciated. Patient did not appear septic based on labs and vital signs. The second blood culture was not drawn. The minimally elevated lactic acid is likely due to hydration status. Patient received a liter of IV fluid. Diagnostic Imaging Diagonstic Imaging: Xray Plain Films/CT/US/NM/MRI: chest Comments Chest x-ray viewed by me and report reviewed. See report below: NAME: RUSSELL SAMAYOA [facility] REC#: [id number] PT STATUS: REG ER : 1950 PHYSICIAN: BERTA SOUZA MD ADMIT DATE: 04/15/20/ER Signed Date of Exam:04/15/20 CHEST 1 VIEW, AP/PA ONLY Indication: Cough and fever Portable chest 4:47 PM Heart size and pulmonary and pulmonary vascularity are normal. There is increased density in the perihilar region on the right. There are no peripheral infiltrates. There are no effusions or pneumothoraces. IMPRESSION: 3.4 cm right hilar opacity could be mass or infiltrate. It was not apparent on previous exam from 02/10/2018. Further evaluation with CT chest should be considered. Dictated by: Dictated on workstation # [id number] Dict: 04/15/201646 Trans: 04/15/201648 [id number] Interpreted by: MONTY AQUINO MD Electronically signed by: MONTY AQUINO MD 04/15/201648 Diagonstic Imaging: CT Plain Films/CT/US/NM/MRI: chest Comments CT chest viewed by me and report reviewed. See report below: NAME: RUSSELL SAMAYOA [facility] REC#: [id number] PT STATUS: REG ER : 1950 PHYSICIAN: BERTA SOUZA MD ADMIT DATE: 04/15/20/ER Draft Date of Exam:04/15/20 CT CHEST W PROCEDURE: CT chest with contrast only. TECHNIQUE: Multiple contiguous axial images were obtained through the chest after administration of intravenous contrast. Auto Exposure Controls were utilized during the CT exam to meet ALARA standards for radiation dose reduction. DATE: April 15, 2020. COMPARISON: Chest radiograph April 15, 2020. CT chest September 06, 2014. INDICATION: 70-year-old female, cough. Fever. Evaluation for potential mass or adenopathy. FINDINGS: There is no identified pulmonary nodule. There is no lung mass. There is no focal airspace consolidation. There is no pneumothorax. There is no pleural effusion. The central airways are patent. There is no identified pulmonary embolus. The heart is not enlarged. There is no pericardial effusion. There are atherosclerotic calcifications. There is no abnormally enlarged mediastinal, hilar or axillary lymph node meeting CT size criteria for adenopathy. There is no mediastinal mass. There is diffuse fatty infiltration of the liver. The patient is status post cholecystectomy. There is mild inflammatory stranding in the anterior aspect of the upper anterior abdominal subcutaneous tissues. There is no identified acute bony abnormality. IMPRESSION: CT chest: 1. No identified mass or adenopathy. The radiographically questioned prominence relates to the pulmonary vasculature. 2. No acute cardiopulmonary abnormality. 3. Diffuse fatty infiltration of the liver. Dictated on workstation # [id number] Dict: 04/15/201801 Trans: 04/15/201807 [facility] [id number] Interpreted by: TAMEKA BARAHONA MD Departure Impression Primary Impression: Cough Additional Impressions: Urinary tract infection Qualified Codes: N39.0 - Urinary tract infection, site not specified Abnormal chest x-ray Disposition: HOME, SELF-CARE Condition: Stable Departure-Patient Inst. Decision time for Depature: 18:20 Referrals: [facility] [place] (PCP) Primary Care Physician ANALILIA LEMUS APRN (Family) Primary Care Physician Scripts Cephalexin (Keflex) 500 Mg Capsule 500 MG PO TID, #20 CAP Prov: BERTA SOUZA MD 04/15/20 Copy Copies To 1: NAUN JHA DO Copies To 2: BACILIO MCCOY DO BERTA SOUZA MD Apr 15, 2020 17:31
[2020-04-15] MEDS ORDERED: HOLD METFORMIN - RECEIVED CONTRAST 20 ML VIAL IV SCH (17:45)
[2020-04-15] MEDS ORDERED: NS 100 ML (IVPB) BAG IV ONE (17:45)
[2020-04-15] MEDS ORDERED: IOHEXOL 350 MG/ML 100 ML (OMNIPAQUE 350) VIAL IV ONE (17:45)
--- NOTE | 2020-04-15 18:09 | Diagnostic Imaging Report ---
PROCEDURE: CT chest with contrast only. TECHNIQUE: Multiple contiguous axial images were obtained through the chest after administration of intravenous contrast. Auto Exposure Controls were utilized during the CT exam to meet ALARA standards for radiation dose reduction. DATE: April 15, 2020. COMPARISON: Chest radiograph April 15, 2020. CT chest September 06, 2014. INDICATION: 70-year-old female, cough. Fever. Evaluation for potential mass or adenopathy. FINDINGS: There is no identified pulmonary nodule. There is no lung mass. There is no focal airspace consolidation. There is no pneumothorax. There is no pleural effusion. The central airways are patent. There is no identified pulmonary embolus. The heart is not enlarged. There is no pericardial effusion. There are atherosclerotic calcifications. There is no abnormally enlarged mediastinal, hilar or axillary lymph node meeting CT size criteria for adenopathy. There is no mediastinal mass. There is diffuse fatty infiltration of the liver. The patient is status post cholecystectomy. There is mild inflammatory stranding in the anterior aspect of the upper anterior abdominal subcutaneous tissues. There is no identified acute bony abnormality. IMPRESSION: CT chest: 1. No identified mass or adenopathy. The radiographically questioned prominence relates to the pulmonary vasculature. 2. No acute cardiopulmonary abnormality. 3. Diffuse fatty infiltration of the liver. Dictated by: Dictated on workstation # [id number]
[2020-04-15] MEDS ORDERED: CEPH-507 PO (18:27)
[2020-04-15] MEDS ORDERED: cefTRIAXone FOR IV USE 1,000 MG in WATER (STERILE) FOR INJECTION 10 ML IV ONE (18:30)
[2020-04-15 19:06] VITALS: BP 164/72
== END 2020-04-15 19:06 | disposition home or self-care (01) ==
LOC: EDUNIT# 15:13 → ER 15:14
DX: R05 Cough (principal); N39.0 Urinary tract infection, site not specified; I10 Essential (primary) hypertension; E78.00 Pure hypercholesterolemia, unspecified; E03.9 Hypothyroidism, unspecified; F41.9 Anxiety disorder, unspecified; F32.9 Major depressive disorder, single episode, unspecified; E11.9 Type 2 diabetes mellitus without complications; R91.8 Other nonspecific abnormal finding of lung field; Z20.828 Contact with and (suspected) exposure to other viral communicable diseases; Z82.49 Family history of ischemic heart disease and other diseases of the circulatory system; Z80.42 Family history of malignant neoplasm of prostate; Z79.890 Hormone replacement therapy; Z79.82 Long term (current) use of aspirin; Z79.84 Long term (current) use of oral hypoglycemic drugs
CPT/HCPCS: 71045; 71260; 80053; 81000; 83605; 83615; 85025; 85610; 85730; 86141; 87088; 87804; 99284; U0002; 36415; 87635

== ENCOUNTER → 2021-10-05 | Outpatient (CLI) | payer MEDICARE ==
[~2021-10-05] VITALS: Ht 157.5 cm; Wt 85.5 kg
[~2021-10-05] MED LIST changes: +CEPH-507 PO; -LISI-552 PO; +LISI20TA26 PO; +SERT-413 PO
== END | disposition home or self-care (01) ==
LOC: PREOP 05:28
PROVIDERS: ATTEND Surgery
DX: Z01.818 Encounter for other preprocedural examination (principal)

== ENCOUNTER 2021-10-12 08:52 | Day surgery (SDC) | payer MEDICARE ==
[2021-10-12] VITALS (10 sets, daily range): BP systolic 126–155; BP diastolic 65–80
[~2021-10-12] VITALS: Ht 157.5 cm; Wt 85.5 kg
[2021-10-12] MEDS ORDERED: LACTATED RINGERS 1,000 ML IV PRN (09:30)
[2021-10-12] MEDS ORDERED: ceFAZolin 2 GM IV Premixed 50 ML IV ONE (09:30)
[2021-10-12] MEDS ORDERED: LIDOCAINE/EPI 2% 1:200,00 (XYLOCAINE) 20 ML VIAL ONE (09:44)
--- NOTE | 2021-10-12 09:49 | Progress Note-Pre Operative ---
Pre-Operative Progress Note H&P Reviewed The H&P was reviewed, patient examined and no changes noted. Time Seen by Provider: 09:46 Date H&P Reviewed: October 12, 2021 Time H&P Reviewed: 09:46 Pre-Operative Diagnosis: Incarcerated Incisional/Ventral hernia NAUN JHA DO October 12, 2021 09:49
[2021-10-12] MEDS ORDERED: fentaNYL INJ 100 MCG/2 ML AMP ONE (10:14)
[2021-10-12] MEDS ORDERED: MIDAZOLAM 2 MG/2 ML (VERSED) VIAL ONE (10:14)
[2021-10-12] MEDS ORDERED: ROCURONIUM 50 MG/5 ML (ZEMURON) VIAL IV ONE (10:57)
[2021-10-12] MEDS ORDERED: LIDOCAINE PF 2% 5 ML (XYLOCAINE) VIAL ONE (10:57)
[2021-10-12] MEDS ORDERED: ONDANSETRON 4 MG/2 ML (SDV) Z0FRAN ONE ×2 (10:57→13:47)
[2021-10-12] MEDS ORDERED: proPOfol 200 MG/20 ML (DIPRIVAN) VIAL IV ONE (10:57)
[2021-10-12] MEDS ORDERED: ACHD5005 PO (11:18)
--- NOTE | 2021-10-12 11:19 | Discharge Inst-Surgical ---
Discharge Inst-Surgical Depart Medication/Instructions New, Converted or Re-Newed RX: Transmitted to Pharmacy Patient Instructions Follow up Appt: Make appointment for 1 week. [phone] Instructions: No lifting greater than 20 pounds. No strenuous activity. May shower in 24 hours, no tub bath or soaking. Use incentive spirometer at home as directed. No Smoking Skin/Wound Care: May remove bandages in am. You need to leave the Dermabond on incision it will fall off on it's own. Symptoms to Report: Appetite Changes, Extremity Discoloration, Numbness/Tingling, Swelling Increased, Bleeding Excessive, Eyesight Changes, Pain Increased, Urine Color Change, Constipation(Persistent), Fever over 101 degree F, Pain/Pressure in chest, Urinating Difficulty, Cough Up/Vomit Blood, Heart Beat Irreg/Pounding, Pain/Pressure in jaw, Cramps in feet or legs, Lightheadedness, Pain/Pressure in shoulder, Diarrhea(Persistent), Memory Changes Suddenly, Questions/Concerns, Weight gain consecutive days, Dizziness/Fainting, Nausea/Vomiting, Shortness of Breath, Weight gain over 2 pounds If questions or concerns contact your physician Or seek help at emergency department. Activity Activity as Tolerated: Yes Activity Instructions: Avoid Stress to Incision Driving Instructions: No Driving/Refer to Dr. Teran Discharge Diet: No Restrictions Diet After 24 Hours: Clear Liquid if Nauseous If Any Problems/Questions/Issu: Contact Your Physician, Go to Emergency Room Skin/Wound Care Infection Signs and Symptoms: Increased Redness, Foul Odor of Wound, Increased Drainage, Skin Itchy or Has a Rash, Increased Swelling, Temperature Above 101 F Wound Care Comment: heating pad to shoulder or neck for pain tonight Bathing Instructions: Shower Stitches/Unity/Dermabond Dis: Cherylabond NAUN JHA DO October 12, 2021 11:19
--- NOTE | 2021-10-12 11:23 | Progress Note-Post Operative ---
Post-Operative Progess Note Surgeon (s)/Biochemistry Technologist (s) Surgeon NAUN JHA DO Biochemistry Technologist: Silvio Pre-Operative Diagnosis Incarcerated Incisional/Ventral hernia Post-Operative Diagnosis same Procedure & Operative Findings Date of Procedure 10/12/21 Procedure Performed/Findings PROCEDURE: Laparoscopic Ventral/Incisional hernia repair with mesh. COMPLICATIONS: None. INDICATIONS: The patient is a 71, female with an incarcerated ventral/ incisional hernia, which has continued to increase in size and cause discomfort. The patient was explained the risk and benefits of the procedure and wished to proceed with the procedure. Consent was signed on the chart. DESCRIPTION OF PROCEDURE: The patient was taken into the operating suite, prepped and draped in sterile fashion. Surgical pause was performed. Local anesthetic was infiltrated in left upper quadrant. A #11 blade scalpel was used to make a small skin incision. Cautery was used to dissect down to the fascia, which was then scored and divided the muscle, went through the posterior sheath and a balloon trocar was inserted into the abdomen. The abdomen was then insufflated. Incarcerated incisional/ventral hernia found with omentum stuck in it. A 5 mm trocar was placed in the right lower quadrant and a 5 mm trocar was placed in left lower quadrant. The omentum was removed from the defect with L-hook cautery and the defect was then closed using 0 Vicryl with a Jason-Lisha. A 4.5 inch round Echo Ventralight mesh was then inserted into the abdomen grabbed through the stab incision. The balloon was inflated on the mesh. Circumferential tacks were placed with a SecureStrap Tacker. The balloon was then removed and inner crown was created as well. The mesh was tacked with pressure being decreased. The 12 mm fascial defect was then closed using 0 Vicryl. The abdomen was then desufflated,the trocars were removed. The skin was then closed using 4-0 Monocryl in a running subcuticular fashion. The abdomen was washed and dried and Skin Affix was placed over the incisions. The patient tolerated procedure well without any complications. She was taken to recovery room in stable condition. Dr. Anguiano assisted on this case helping to make incisions, close incisions, identify anatomy, hold anatomy out of the way and place tacks. Anesthesia Type GET Estimated Blood Loss Estimated blood loss (mL): scant Specimens/Packing Specimens Removed none NAUN JHA DO October 12, 2021 11:23
[2021-10-12] MEDS ORDERED: GLYCOPYRROLATE 0.2 MG/ML (ROBINUL) 2 ML VIAL ONE (11:31)
[2021-10-12] MEDS ORDERED: NEOSTIGMINE 3 MG/3 ML VIAL ONE (11:31)
[2021-10-12] MEDS ORDERED: HYDROcodone/APAP 5 MG/325 MG (LORTAB) TAB ONE (13:26)
[2021-10-12] MEDS ORDERED: HYDROcodone/APAP 5 MG/325 MG (LORTAB) TAB PO ONE (13:30)
[2021-10-12] MEDS ORDERED: ONDANSETRON 4 MG/2 ML (SDV) Z0FRAN IVP ONE (14:00)
--- NOTE | 2021-10-12 15:21 | Anesthesia-General Post-Op ---
General Patient Condition Mental Status/LOC: Same as Preop Cardiovascular: Satisfactory Nausea/Vomiting: Absent Respiratory: Satisfactory Pain: Controlled Complications: Absent Post Op Complications Complications None Follow Up Care/Instructions Patient Instructions None needed. Anesthesia/Patient Condition Patient Condition Patient is doing well, no complaints, stable vital signs, no apparent adverse anesthesia problems. No complications reported per nursing. CLYDE MCFARLAND CRNA October 12, 2021 15:21
== END 2021-10-12 13:50 ==
LOC: SDC 08:52
PROVIDERS: ATTEND Surgery
DX: K43.0 Incisional hernia with obstruction, without gangrene (principal); K42.0 Umbilical hernia with obstruction, without gangrene
CPT/HCPCS: 49655; 82947; 87081; C1781